=== PATIENT | female | born 1955 | race American Indian/Alaskan Native ===

== ENCOUNTER 2023-09-22 11:43 | Emergency (ER) | payer MEDICARE, SELFPAY ==
--- NOTE | ~2023-09-22 | XR_ITS ---
EXAMINATION: XR LUMBOSACRAL SPINE CLINICAL INFORMATION: Pain in the lower back/lumbosacral region. COMPARISON: None available. TECHNIQUE: AP and lateral views of the lumbar spine and lateral view of the lumbosacral junction. FINDINGS: Bones are osteopenic. There is moderate right convex scoliosis centered at the L3 level. There is grade 1 retrolisthesis of L4 on L5 by 4 mm and right lateral translation by 1 cm. No additional malalignment identified. Vertebral heights appear normal, the sensitivity for compression deformity is somewhat limited by the significant curvature and the nonorthogonal views of the vertebral bodies. Multilevel degenerative disc disease is noted in the lumbar spine, moderate in severity at T12-L1, L2-L3, and L3-L4. Multilevel facet arthropathy is suspected. Mild osteoarthritis in the SI joints. Calcific atherosclerosis in the abdominal aorta and iliac arteries. XR/XR lumbar spine 2-3V IMPRESSION: 1. Moderate right convex scoliosis with moderate multilevel degenerative disc disease and facet arthropathy in the lumbar spine. 2. Grade 1 retrolisthesis of L4 on L5. 3. No acute fractures. Osteopenia.
--- NOTE | ~2023-09-22 | CT_ITS ---
EXAMINATION: CT HEAD WITHOUT CONTRAST CT CERVICAL SPINE WITHOUT CONTRAST CLINICAL INFORMATION: Fall COMPARISON: None. TECHNIQUE: Multidetector CT imaging of the head and cervical spine was performed without the use of intravenous contrast. Multiplanar reformats are reviewed. This CT examination was performed using dose optimization techniques as appropriate, variously including the following: *Automated exposure control *Adjustment of mA and/or kV according to patient size (this includes techniques or standardized protocols for targeted exams where dose is matched to indication/reason for exam; i.e. extremities or head) *Use of iterative reconstruction technique DLP: 995 mGy-cm. FINDINGS: There is no evidence of acute intracranial hemorrhage or territorial infarction. No abnormal mass effect or midline shift is seen. Galindo to white matter differentiation is well preserved. No extra-axial fluid collections are identified. The ventricles are normal in size. There is no abnormal attenuation within the brain parenchyma. The osseous structures and soft tissues are normal. The mastoid air cells and visualized portions of the paranasal sinuses are well-aerated. No prevertebral soft tissue swelling. Straightening of normal lordosis. 3 mm anterolisthesis C4 on C5 appears related to degenerative disc and facet disease. Moderate degenerative disc disease at C4-C5, C5-C6, and C6-C7. Moderate facet disease at the same levels, right greater than left. No visible fracture. CT/CT cervical spine wo IV con IMPRESSION: No acute intracranial pathology. No cervical spine fracture. 3 mm anterolisthesis C4 on C5 likely degenerative in etiology. No prevertebral soft tissue swelling.
--- NOTE | ~2023-09-22 | CT_ITS ---
EXAMINATION: CT HEAD WITHOUT CONTRAST CT CERVICAL SPINE WITHOUT CONTRAST CLINICAL INFORMATION: Fall COMPARISON: None. TECHNIQUE: Multidetector CT imaging of the head and cervical spine was performed without the use of intravenous contrast. Multiplanar reformats are reviewed. This CT examination was performed using dose optimization techniques as appropriate, variously including the following: *Automated exposure control *Adjustment of mA and/or kV according to patient size (this includes techniques or standardized protocols for targeted exams where dose is matched to indication/reason for exam; i.e. extremities or head) *Use of iterative reconstruction technique DLP: 995 mGy-cm. FINDINGS: There is no evidence of acute intracranial hemorrhage or territorial infarction. No abnormal mass effect or midline shift is seen. Galindo to white matter differentiation is well preserved. No extra-axial fluid collections are identified. The ventricles are normal in size. There is no abnormal attenuation within the brain parenchyma. The osseous structures and soft tissues are normal. The mastoid air cells and visualized portions of the paranasal sinuses are well-aerated. No prevertebral soft tissue swelling. Straightening of normal lordosis. 3 mm anterolisthesis C4 on C5 appears related to degenerative disc and facet disease. Moderate degenerative disc disease at C4-C5, C5-C6, and C6-C7. Moderate facet disease at the same levels, right greater than left. No visible fracture. CT/CT head/brain wo IV con IMPRESSION: No acute intracranial pathology. No cervical spine fracture. 3 mm anterolisthesis C4 on C5 likely degenerative in etiology. No prevertebral soft tissue swelling.
--- NOTE | 2023-09-22 11:47 | ED_ITS ---
HPI - General Adult General Chief complaint: Fall Stated complaint: Fall 2 days ago - back/neck pain Time Seen by Provider: 09/22/23 12:26 Source: patient and flask carrier (all interactions with this patient were facilitated via an [facility]) Mode of arrival: ambulatory Limitations: language barrier (all interactions with this patient were facilitated via an [facility]) History of Present Illness ED Provider: Olivia Flowers PA-C HPI narrative: Patient is a 68 year old assigned female at with no reported medical history presenting to the emergency department today with neck and back pain. Patient states that 2 days ago she slipped and fell in the shower. Patient states that she hit her head but denies any loss of consciousness. Patient states that her neck and back hurt. Patient denies any dizziness, lightheadedness, abdominal pain, nausea, vomiting, fever, chills, blurry vision, double vision, loss of vision, chest pain, difficulty breathing, shortness of breath, night sweats, pain with urination, increased urinary frequency, increased urinary urgency, blood in her urine or stool, syncope or a near syncopal episode, bowel incontinence, bladder incontinence, bowel retention, bladder retention, or any other complaints at this time. Onset (ago): day(s) (2) Location: neck and back Severity: mild Severity scale (1-10): 4 Quality: aching and dull Pain Consistency: constant Relieving factors: none Exacerbating factors: none Associated symptoms: denies other symptoms Treatments prior to arrival: none Related Data Previous Rx's ?Medication ?Instructions ?Recorded cyclobenzaprine 5 mg tablet 5 mg PO TID PRN pain 7 days #21 09/22/23 tabs Allergies Allergy/AdvReac Type Severity Reaction Status Date / Time No Known Allergies Allergy Verified 09/22/23 15:32 Review of Systems Constitutional: Constitutional: Reports no additional constitutional complaints, Denies chills, Denies fever(s) and Denies night sweats Eyes: Eyes: Reports no additional eye complaints, Denies blurry vision, Denies change in vision, Denies diplopia, Denies eye discharge, Denies loss of vision and Denies eye pain ENT: Denies dizziness and Reports neck pain Cardiovascular: Cardiovascular: Reports no additional cardiovascular complaints, Denies chest pain, Denies lightheadedness, Denies Loss of Consciousness and Denies dyspnea Respiratory: Respiratory: Reports no additional respiratory complaints and Denies dyspnea Gastrointestinal: Gastrointestinal: Reports no additional gastrointestinal complaints, Denies abdominal pain, Denies melena, Denies hematochezia, Denies change in bowel habits and Denies change in stool character Genitourinary: Genitourinary: Denies hematuria, Denies urinary frequency, Denies dysuria, Denies urinary incontinence, Denies urinary hesitancy and Denies urinary urgency Musculoskeletal: Musculoskeletal: Reports no additional musculoskeletal complaints, Reports back pain, Reports neck pain, Denies numbness and Denies tingling Neurologic: Denies dizziness, Denies loss of vision, Denies numbness and Denies tingling Psychiatric: Psychiatric: Reports no additional psychiatric complaints Endocrine: Endocrine: Reports no additional endocrine complaints Hematologic/Lymphatic: Hematologic/Lymphatic: Reports no additional hematologic/lymphatic complaints Allergic/Immunologic: Allergic/Immunologic: Reports no additional allergic/immunologic complaints PMFSH Past Medical History Attestation statement: The following information was validated with the patient. Source: old records reviewed and nursing notes reviewed Social History Social History Advance Directives: No Physical Exam ED Vital Signs: Vital Signs - 24 hr 09/22/23 11:48 09/22/23 15:37 Temperature 98 F 98 F Pulse Rate 85 85 Respiratory Rate 18 18 Blood Pressure 161/86 H 161/86 H Pulse Oximetry 98 98 Oxygen Delivery Method Room Air Room Air BMI result Body Mass Index 22.7 Const General: cooperative, no acute distress, alert and awake Nutritional Appearance: well nourished Orientation/consciousness: patient oriented x3 Limitations: no limitations [facility] Head: Yes normal to inspection and Yes atraumatic Ears: hearing grossly normal bilaterally and external ears normal General nose exam: Normal external nose present, no nasal discharge noted and no epistaxis Face and sinus: Yes normal facial exam, No abrasion and No laceration Mouth: Normal oral and palatal mucosa present, no drooling and no muffled voice Eyes General: appearance normal, both eyes and all related structures Periorbital: periorbital findings normal Eyelids: Yes eyelids normal Conjunctivae: conjunctivae normal Pupils: Equal, round and reactive pupils present EOM: EOMs intact bilaterally Neck Neck: Yes normal visual inspection, Yes full ROM and Yes no lymphadenopathy Chest Chest palpation & inspection: normal inspection of the chest Resp Effort & Inspection: normal respiratory effort and able to speak in complete sentences GI Inspection: Yes normal to inspection General: Yes no CVA tenderness Back/Spine/Pelvis Back: no CVA tenderness Cervical Spine: normal cervical lordosis and cervical ROM normal Thoracic/Lumbar Spine: thoracic and lumbar spine normal to inspection Neuro General: patient oriented x3 and moves all extremities Cranial nerves: Yes Equal, round and reactive pupils present Cognition (Neuro): normal cognition Motor exam (neuro): 5/5 motor strength present throughout Sensory Exam: Normal double simultaneous stimulation for sensation Coordination: [id number] test normal Extrem General: Yes normal to inspection, Yes full ROM and Yes capillary refill normal Psych Appearance: grossly normal Mental Status: mental status grossly normal Affect: normal affect Attitude: cooperative Thought process: Normal thought process present Thought content: Normal thought content present Insight: Good insight present (Psych) Course Course Course Narrative: This is an RME done by SHAHNAZ Lowe: Additional HPI, ROS, PE not included below will be deferred to primary provider. This is a 68 year old female with a hx of HTN who fell in the shower 2 days ago and hit her head, neck, and lower back. She had no loss of consciousness, but the pain was so bad she was on the ground for a while, she reports. No urinary or bowel incontinence, no numbness, weakness, or tingling. She takes no blood thinners. Appearance: Alert.? Oriented X3.? No acute cardiopulmonary distress distress.? Head: Normocephalic, atraumatic, no step-offs or deformities Neck: Normal inspection.? Neck supple.? CVS: Pulses normal.? Respiratory: No respiratory distress.? Skin: ? Normal skin color. Extremities: 5/5 strength to bilateral upper and lower extremities Back: No midline tenderness, no C-spine tenderness, full range of motion, No CVA tenderness bilaterally Neuro: Oriented X 3.? No motor deficit.? No sensory deficit. Medications Administered Discontinued Medications Generic Name Dose Route Start Last Admin Trade Name Freq PRN Reason Stop Dose Admin Cyclobenzaprine HCl 5 mg 09/22/23 15:24 09/22/23 15:33 Cyclobenzaprine Hcl 5 Mg Tablet PO 09/22/23 15:25 5 mg ONCE ONE Administration Ketorolac Tromethamine 15 mg 09/22/23 15:24 09/22/23 15:32 Ketorolac Tromethamine 15 Mg/Ml Vial IM 09/22/23 15:25 15 mg ONCE ONE Administration Medical Decision Making Medical Decision Making MDM Narrative: Patient is a 68 year old assigned female at with no reported medical history presenting to the emergency department today with neck and back pain. Patient's physical exam was unremarkable. Patient's lumbar x-ray showed no acute process. Patient's head and c-spine CTs showed no acute process. I explained my physical exam findings as well as all test results to the patient. I answered all questions asked by the patient. I stressed the importance of the patient taking her medication as prescribed. I stressed the importance of the patient following up with her primary care provider. I stressed the importance of the patient returning to the emergency department immediately if her symptoms were to worsen or if she were to develop any dizziness, shortness of breath, difficulty breathing, chest pain, blurry vision, loss of vision, nausea, v omiting, abdominal pain, fever, chills, back pain, or any other complaints. Patient verbalized agreement and understanding with this treatment plan and discharge. Differential Diagnosis Differential Diagnoses: The differential diagnosis associated with the presentation includes Fall Neck pain Back pain Muscle spasm Admission/Observation Consideration of admission/observation: Escalation of care including admission/observation considered Patient would have been admitted to the hospital had her work up had any findings where hospital admission was appropriate and her clinical presentation warranted hospital admission. Independent Interpretation I performed an independent interpretation of an: Plain X-Ray and CT Scan Interpretation: My interpretation is in agreement with the radiologist's impression of these imaging studies. EXAMINATION: CT HEAD WITHOUT CONTRAST CT CERVICAL SPINE WITHOUT CONTRAST CLINICAL INFORMATION: Fall COMPARISON: None. TECHNIQUE: Multidetector CT imaging of the head and cervical spine was performed without the use of intravenous contrast. Multiplanar reformats are reviewed. This CT examination was performed using dose optimization techniques as appropriate, variously including the following: *Automated exposure control *Adjustment of mA and/or kV according to patient size (this includes techniques or standardized protocols for targeted exams where dose is matched to indication/reason for exam; i.e. extremities or head) *Use of iterative reconstruction technique DLP: 995 mGy-cm. FINDINGS: There is no evidence of acute intracranial hemorrhage or territorial infarction. No abnormal mass effect or midline shift is seen. Galindo to white matter differentiation is well preserved. No extra-axial fluid collections are identified. The ventricles are normal in size. There is no abnormal attenuation within the brain parenchyma. The osseous structures and soft tissues are normal. The mastoid air cells and visualized portions of the paranasal sinuses are well-aerated. No prevertebral soft tissue swelling. Straightening of normal lordosis. 3 mm anterolisthesis C4 on C5 appears related to degenerative disc and facet disease. Moderate degenerative disc disease at C4-C5, C5-C6, and C6-C7. Moderate facet disease at the same levels, right greater than left. No visible fracture. CT/CT head/brain wo IV con IMPRESSION: No acute intracranial pathology. No cervical spine fracture. 3 mm anterolisthesis C4 on C5 likely degenerative in etiology. No prevertebral soft tissue swelling. Dictated By: Lester King MD Signed By: Electronically signed by Lester King MD 09/22/23 7447 EXAMINATION: XR LUMBOSACRAL SPINE CLINICAL INFORMATION: Pain in the lower back/lumbosacral region. COMPARISON: None available. TECHNIQUE: AP and lateral views of the lumbar spine and lateral view of the lumbosacral junction. FINDINGS: Bones are osteopenic. There is moderate right convex scoliosis centered at the L3 level. There is grade 1 retrolisthesis of L4 on L5 by 4 mm and right lateral translation by 1 cm. No additional malalignment identified. Vertebral heights appear normal, the sensitivity for compression deformity is somewhat limited by the significant curvature and the nonorthogonal views of the vertebral bodies. Multilevel degenerative disc disease is noted in the lumbar spine, moderate in severity at T12-L1, L2-L3, and L3-L4. Multilevel facet arthropathy is suspected. Mild osteoarthritis in the SI joints. Calcific atherosclerosis in the abdominal aorta and iliac arteries. XR/XR lumbar spine 2-3V IMPRESSION: 1. Moderate right convex scoliosis with moderate multilevel degenerative disc disease and facet arthropathy in the lumbar spine. 2. Grade 1 retrolisthesis of L4 on L5. 3. No acute fractures. Osteopenia. Dictated By: Robbi Pink MD Signed By: Electronically signed by Robbi Pink MD 09/22/23 4501 Radiology Impression Discussion of test interpretation with radiology: I have reviewed the radiologist's reading. Prescription Management I considered prescription management with: Pain Medication (patient prescribed pain medication) Discharge Plan Discharge Clinical Impression: Fall, Back pain, Acute neck pain Patient Disposition: Home, Self-Care Instructions: Fall Prevention for Older Adults (ED), Back Pain (ED), Acute Neck Pain (ED) Additional Instructions: Follow up with your primary care provider. Return to the emergency department immediately if your symptoms worsen or if you develop any dizziness, shortness of breath, difficulty breathing, chest pain, blurry vision, loss of vision, nausea, vomiting, abdominal pain, fever, chills, back pain, or any other complaints. Prescriptions: New cyclobenzaprine 5 mg tablet 5 mg PO TID PRN (Reason: pain) 7 Days Qty: 21 0RF Referrals: [facility] [[facility]] (Call to establish and follow up with a primary care provider. If you already have a primary care provider, please follow up with them.) [facility] [Provider Group] [facility] [Provider Group] Interventions: ED Discharge Assessment Last Done: 09/22/23 15:37 Discharge Date/Time: 09/22/23 15:38 Print Language: Maltese
[2023-09-22 11:48] VITALS: BP 161/86; PULSE 85; RESP 18; TEMP 36.6; O2SAT 98; BMI 22.7
[2023-09-22] MEDS: Ketorolac Tromethamine 15 MG/ML VIAL IM (15:32)
[2023-09-22] MEDS: Cyclobenzaprine HCl 5 MG TABLET PO (15:33)
[2023-09-22 15:37] VITALS: BP 161/86; PULSE 85; RESP 18; TEMP 36.6; O2SAT 98
== END 2023-09-22 15:38 | disposition home or self-care (01) ==
PROVIDERS: Emergency Provider Emergency Medicine
DX: M54.2 Cervicalgia (principal); M54.50 Low back pain, unspecified; Z91.81 History of falling
CPT/HCPCS: 70450; 72100; 72125; 96372; 99283; 99284; J1885

== ENCOUNTER 2023-11-04 14:26 | Emergency (ER) | payer MEDICARE, MEDICAID, SELFPAY ==
[2023-11-04 15:00] VITALS: BP 129/76; PULSE 88; RESP 16; TEMP 36.6; O2SAT 97; BMI 21.6
--- NOTE | 2023-11-04 15:00 | ED.GENADULT ---
HPI - General Adult General Stated complaint: high bp needs medication Time Seen by Provider: 11/04/23 15:06 Source: patient, RN notes reviewed and old records reviewed Mode of arrival: ambulatory Limitations: no limitations History of Present Illness ED Provider: Chaparrita King PA-C HPI narrative: 68 yo Belarusian speaking female presents to the ER for medication refill. She has history of HTN and just moved here from [place]. She is on irbesartan 150 mg per day and needs a refill, she only has 1 pill left. Her BP has been well controlled at home with this medication. no chest pain, headaches, vision changes. she has an apppointment with a doctor here on 11/09. Associated symptoms: denies other symptoms Related Data Previous Rx's ?Medication ?Instructions ?Recorded cyclobenzaprine 5 mg tablet 5 mg PO TID PRN pain 7 days #21 09/22/23 tabs irbesartan 150 mg tablet 150 mg PO DAILY #14 tabs 11/04/23 Allergies Allergy/AdvReac Type Severity Reaction Status Date / Time No Known Allergies Allergy Verified 11/04/23 15:01 Review of Systems Review of Systems: Yes all other systems are reviewed and are negative Physical Exam ED Const General: cooperative, healthy appearing, comfortable and no acute distress Nutritional Appearance: average body habitus Limitations: no limitations HENMT Head: Yes normal to inspection, Yes normocephalic and Yes atraumatic Ears: hearing grossly normal bilaterally General nose exam: Normal external nose present Face and sinus: Yes normal facial exam Eyes General: appearance normal, both eyes and all related structures Neck Neck: Yes normal visual inspection Resp Effort & Inspection: normal respiratory effort and able to speak in complete sentences Cardio Rate: regular rate Rhythm: regular rhythm Heart sounds: S1 normal heart sound present and S2 normal heart sound present GI Inspection: Yes normal to inspection Skin General skin exam: no rashes or lesions noted Neuro General: gait normal Cognition (Neuro): normal cognition Extrem General: Yes normal to inspection Psych Appearance: grossly normal and well kempt Mental Status: mental status grossly normal Speech and movement: Normal speech and movement present Medical Decision Making Medical Decision Making MDM Narrative: 68 yo female presenting for med refill - she is on irbesartan 150 mg with good BP control. she is asymptomatic at this time and feels well. she has an appointment with a provider here next week. 2 weeks of irbesartan sent to her pharmacy. patient counseled using catering staff member. stable for d/c home Differential Diagnosis Differential Diagnoses: The differential diagnosis associated with the presentation includes primary HTN, secondary HTN, medication noncompliance Tests considered The following testing was considered but not selected: basic labs and EKG considered - not emergently required today Prescription Management I considered prescription management with: Other (antihypertensives) Chronic Conditions Patient?s care impacted by: Hypertension Social Determinants Patient?s care significantly limited by Social Determinants of Health including: Other Social Determinant of Health (recently moved to ) Critical Care Time Critical Care Time Critical Care Time: No Discharge Plan Discharge Clinical Impression: Hypertension Qualifiers: Hypertension type: primary hypertension Qualified Code(s): I10 - Essential (primary) hypertension Patient Disposition: Home, Self-Care Instructions: Hypertension (ED) Additional Instructions: take the prescribed medication as directed follow up with your PCP next week as directed Prescriptions: New irbesartan 150 mg tablet 150 mg PO DAILY Qty: 14 0RF No Action cyclobenzaprine 5 mg tablet 5 mg PO TID PRN (Reason: pain) 7 Days Qty: 21 0RF Print Language: Belarusian
[2023-11-04 15:33] VITALS: BP 129/76; PULSE 88; RESP 16; TEMP 36.6; O2SAT 97
== END 2023-11-04 15:15 | disposition home or self-care (01) ==
LOC: HO.ED 15:18
PROVIDERS: Emergency Provider Emergency Medicine; PCP Internal Medicine
DX: I10 Essential (primary) hypertension (principal); Z76.0 Encounter for issue of repeat prescription
CPT/HCPCS: 99282; 99283

== ENCOUNTER 2023-12-28 09:19 | Outpatient (REF) | payer OTHER, MEDICAID, SELFPAY ==
[2023-12-28 11:08] LABS: MANUAL DIFF FLAG NO
[2023-12-28 11:25] LABS: Basophils Percent Auto 0.7 % (0-2); Eosinophils Absolute Auto 0.2 X10*3/uL (0.0-0.4); Eosinophils Percent Auto 4.1 % (0-4); Hematocrit 36.4 % (37.0-47.0); Hemoglobin 11.9 g/dl (12.0-16.0); Imm Gran Abs Auto 0.02 X10*3/uL (0.00-0.03); Imm Gran Pct Auto 0.3 % (0.0-0.4); Lymphocytes Absolute Auto 1.9 X10*3/uL (1.2-4.9); Lymphocytes Percent Auto 32.7 % (20-40); Mean Corpuscular HGB Conc 32.7 g/dl (31.0-35.0); Mean Corpuscular Hemoglobin 28.1 pg (27.0-33.0); Mean Corpuscular Volume 86.1 fL (80.0-98.0); Mean Platelet Volume 11.3 fL (9.4-12.3); Monocytes Absolute Auto 0.5 X10*3/uL (0.1-1.2); Monocytes Percent Auto 7.8 % (2-11); Neutrophils Absolute Auto 3.2 x10*3/uL (2.0-8.3); Neutrophils Percent Auto 54.4 % (45-73); Platelet Count 243 X10*3/uL (160-400); Red Blood Count 4.23 X10*6/uL (4.20-5.50); Red Cell Distribution Width 14.1 % (11.0-16.0); White Blood Count 5.9 X10*3/uL (4.8-10.8)
[2023-12-28 11:36] LABS: Alanine Aminotransferase 17 U/L (0-31); Albumin Level 4.2 g/dL (3.5-5.0); Alkaline Phosphatase 92 U/L (39-117); Anion Gap 12 (12-20); Aspartate Amino Transferase 16 U/L (5-31); Bilirubin Total 0.3 mg/dL (0.0-1.0); Blood Urea Nitrogen 18 mg/dL (9-16); Calcium 9.7 mg/dL (8.4-10.2); Carbon Dioxide 27 mmol/L (22-29); Chloride 107 mmol/L (96-108); Cholesterol 278 mg/dL (<200); Estimated Glomerular Filt Rate > 60; Glucose Random 87 mg/dL (60-115); HDL Cholesterol 59 mg/dL (>40); LDL Cholesterol Calculated 163 mg/dL (<100); Potassium 4.5 mmol/L (3.3-5.1); Sodium 141 mmol/L (135-145); Total Protein 7.3 g/dL (6.5-8.0); Triglycerides 281 mg/dL (<150)
[2023-12-28 11:55] LABS: Thyroid Stimulating Hormone 2.56 uIU/mL (0.32-4.0)
== END 2023-12-28 09:20 | disposition home or self-care (01) ==
LOC: HO.10HDL 09:19
PROVIDERS: Visit Provider Internal Medicine
DX: E78.00 Pure hypercholesterolemia, unspecified (principal); F32.2 Major depressive disorder, single episode, severe without psychotic features; I10 Essential (primary) hypertension; M41.9 Scoliosis, unspecified; M54.50 Low back pain, unspecified
CPT/HCPCS: 36415; 80053; 80061; 84443; 85025

== ENCOUNTER 2024-02-04 11:00 | Outpatient (RCR) | payer OTHER, SELFPAY ==
--- NOTE | 2024-02-09 11:32 | MHC.PT.DC ---
[facility] [place] Office [place] Office [place] Office [address] August Cazares [address] [phone] F: [phone] F: [phone] F: [phone] F: [phone] Physical Therapy Discharge Report Diagnosis: Back pain scoliosis Date of Surgery: NA Date of Evaluation: 01/05/24 Date of Discharge: 02/09/24 Treatments to Date: 7 Cancellations to Date: 3 No Shows to Date: 0 Discharge Status: Improved Function Independent with HEP Discharge Summary: Mary has completed 7 PT visits. She has made improvements and is independent with all HEP. She is therefore being d/c from PT. Electronically signed by: Carol Ann Holman PT DPT Please sign and return to therapist. Thank you for your referral.
== END 2024-02-09 11:32 | disposition home or self-care (01) ==
LOC: HO.PT 11:00
PROVIDERS: PCP Internal Medicine; Visit Provider Internal Medicine
DX: M41.9 Scoliosis, unspecified (principal); M54.50 Low back pain, unspecified
CPT/HCPCS: 97110; 97161

== ENCOUNTER 2024-02-09 11:04 | Outpatient (AMB) | payer OTHER, SELFPAY ==
--- NOTE | 2024-02-09 11:10 | A.OFFVIS_ITS ---
Intake Visit Reasons: SHIPYARD HELPER Right hand trigger finger Intake Note: Mary is a 68 year old right hand dominant female who presents today as new patient with complaints of her right hand thumb trigger. Pt states she has problems with both thumbs. Pt states she wears braces on both hands all the time except when she is sleeping. Pt denies any previous surgeries or injections in both hands. Microsoft Windows Engineer Required: Yes Microsoft Windows Engineer Language: Washing Machine Loader Services: Microsoft Windows Engineer Present Microsoft Windows Engineer Name: Stephanie ([id number]) Accompanied by: niece Allergies No Known Allergies Allergy (Verified 02/09/24 11:10) HPI HPI SHIPYARD HELPER Right hand trigger finger: Details: Patient is a 68-year-old female who presents for evaluation of bilateral trigger thumbs, as well as bilateral wrist pain and stiffness. Patient states that this locking and catching has been ongoing for approximately 3 months. Patient reports that this causes her significant pain over and near the A1 davidson of the bilateral thumbs, and she feels that this pain and locking and catching significantly inhibit her ability to function adequately. Of note, the patient also reports that she has been wearing bilateral wrist splints for some time, and she feels this has worsened the pain and decreased range of motion in her bilateral wrists. Patient denies any numbness or tingling in the hands. No other acute complaints or concerns at this time. Review of Systems Const All systems reviewed & are unremarkable except as noted in HPI and below Physical Exam Extrem Other: Patient is alert, oriented, and in no acute distress. Neuro: Normal sensation of the tips of all digits of the bilateral hands at this time Vascular: Cap refill brisk Pain: Patient reports tenderness to palpation of the A1 davidson of bilateral thumbs Patient reports diffuse fbyf-uq-nrehwyed tenderness to palpation about bilateral wrists, worst in the volar aspect ROM: Extension of bilateral wrists limited to approximately 30 degrees past neutral Bilateral wrist flexion full and intact Patient is able to make a closed fist and extend all digits of bilateral hands fully There is however visible and palpable locking and catching of bilateral thumbs Skin: No lacerations or abrasions. General: No ecchymosis, erythema, or evidence of infection. Psych: Appears grossly normal Affect normal Attitude cooperative Office Procedures Tendon Injection Tendon Injection Details: Right trigger thumb injection [id number] Tendon Sheath Injection All charges added?: Procedure code (CPT) selection complete Assessment & Plan Assessment & Plan (1) Bilateral stiffness of wrist joints: Code(s): M25.631 - Stiffness of right wrist, not elsewhere classified; M25.632 - Stiffness of left wrist, not elsewhere classified Category: Medical Plan 1. Trigger thumb, right Ongoing for 3 months Patient would like to proceed with steroid injection at this time The risks and benefits of a steroid injection including but not limited to risk of damage to blood vessels, nerves, tendons, infection, skin bleaching, failure to improve symptoms, increased pain, and possible need for further injections or other intervention were discussed with the patient and the patient wishes to proceed with the steroid injection. Once consent was obtained, I sterilely prepped the area over the A1 davidson of the flexor tendon sheath of the right thumb. I then injected the flexor tendon sheath with a combination of 1 mL of dexamethasone (4mg/ml), and 1% lidocaine. The patient tolerated the procedure well with no complications. If the patient continues to have locking and catching 4-6 weeks following this injection, they may call to schedule appointment to discuss alternative treatment options 2. Trigger thumb, left Ongoing for 3 months Patient states that she finds the right side more bothersome, would like to proceed with injection of the site at this time If the injection proves effective, patient can call to make a follow-up appointment for injection into the left However, if injections are not effective, we can discuss surgery on both thumbs at follow-up visit Patient is amenable to this plan 3. Bilateral wrist stiffness Patient was referred to occupational hand therapy for range of motion and strengthening of bilateral wrists Patient was also encouraged to discontinue use of the Velcro wrist splints, as they are likely worsening her stiffness and not providing her any benefit Patient understands this and is amenable to this plan Patient will follow-up as needed with any acute concerns Orders: Orders OT Evaluation and Treatment Today M25.631 - Stiffness of right wrist, not elsewhere classified, M25.632 - Stiffness of left wrist, not elsewhere cl assified Coding Level of Care Code New Pt Level 3 (44722) Diagnoses Bilateral stiffness of wrist joints M25.631; M25.632 CPT Codes Tendon Injection - Tendon Injection 1: [id number]-[id number] Tendon Sheath Injection ([id number])
== END 2024-02-09 12:03 | disposition home or self-care (01) ==
PROVIDERS: PCP Internal Medicine
DX: M25.631 Stiffness of right wrist, not elsewhere classified (principal); M25.632 Stiffness of left wrist, not elsewhere classified
CPT/HCPCS: 20550; 99203

== ENCOUNTER → 2024-02-09 11:04 | Outpatient (BNVA) | payer OTHER, SELFPAY | PROVIDERS: PCP Internal Medicine | DX: M25.631 Stiffness of right wrist, not elsewhere classified (principal); M25.632 Stiffness of left wrist, not elsewhere classified | CPT/HCPCS: 20550; 99202; J1100; J2003 ==

== ENCOUNTER 2024-03-08 16:54 | Outpatient (REF) | payer OTHER, SELFPAY | END 2024-03-08 16:55 | disposition home or self-care (01) | LOC: HO.XRAY 16:54 | PROVIDERS: PCP Internal Medicine; Visit Provider Internal Medicine | DX: M54.50 Low back pain, unspecified (principal) | CPT/HCPCS: 72100 ==

== ENCOUNTER 2024-03-09 13:58 | Outpatient (AMB) | payer OTHER, SELFPAY ==
[2024-03-09 14:13] VITALS: BP 128/78; PULSE 77; BMI 22.6
--- NOTE | 2024-03-09 14:13 | A.OFFVIS_ITS ---
Vital Signs 03/09/24 14:13 Height 5 ft 3 in Weight 127 lb 13.89 oz BMI 22.6 BP 128/78 Blood Pressure Location Lt brachial Position Sitting Pulse 77 Intake Visit Reasons: Colonoscopy Screening Intake Note: Mary presents as a new patient for colonoscopy screening. CC: Patient reports constipation ever since she began taking a medication for cholesterol. Planer Operator Required: Yes Planer Operator Name: [id number] Louise Accompanied by: Self / Same As Patient Allergies No Known Allergies Allergy (Verified 03/09/24 14:18) HPI HPI Colonoscopy Screening: Details: 68-year-old female here for preprocedural meeting to discuss a screening colonoscopy. She is referred by Chloe Lopez. PMX Hypertension High cholesterol Hypothyroid Scoliosis Depression Bilateral carpal tunnel syndrome * SURGICAL HISTORY Pt denies * ALLERGIES Atorvastatin Sertraline - lips numb * [employer] LABS: Laboratory Tests 12/28/23 09:25 WBC 5.9 Hgb 11.9 L Hct 36.4 L MCV 86.1 MCH 28.1 Plt Count 243 Estimated GFR > 60 Total Bilirubin 0.3 AST 16 ALT 17 Alkaline Phosphatase 92 TSH 2.56 TODAY'S VISIT Lithuanian #[id number], then Seamus Live This is her first colonoscopy. SHe suffers occasional CIC no upper stomach problems She is naive to anesthesia and sedation. She denies any cardiac or respiratory problems. No ID problems There is no known FHX of CRC or polyps. [facility] Surgical History (Updated 03/09/24 @ 14:25 by BRADLEY Balbuena) No pertinent past surgical history Social History (Updated 03/09/24 @ 14:26 by BRADLEY Balbuena) Alcohol intake: current Alcohol intake frequency: holidays/special occasions only Patient Tobacco Use Status: Never used Tobacco Use of substances other than those prescribed or required for medical reasons: No Review of Systems Const Denies fatigue, Denies fever(s), Denies night sweats, Denies poor appetite and Denies weight loss Eyes Details: glasses Reports requires corrective lenses ENT Reports Normal hearing present, Denies dental pain, Denies dysphagia, Denies hearing loss, Denies mouth pain, Denies odynophagia, Denies throat swelling, Denies tongue swelling and Reports other (Dentition adequate) Card Reports no additional complaints Resp Reports no additional complaints GI Details: Denies abdominal pain, Denies melena, Denies bloating, Denies hematochezia, Reports constipation, Denies GI cramping, Denies dysphagia, Denies excessive flatus, Denies early satiety, Denies heartburn, Denies diarrhea, Denies nausea, Denies odynophagia, Denies vomiting and Denies hematemesis Skin/Breast Denies pruritus, Denies lesions, Denies rash and Denies jaundice Neuro Reports Normal hearing present and Denies Abnormal speech present Endo Denies fatigue Aller/Immun Denies throat swelling and Denies tongue swelling Physical Exam Vital Signs: Last Vital Signs Pulse 77 03/09/24 14:13 BP 128/78 03/09/24 14:13 BMI result Body Mass Index 22.6 Const General: cooperative, no acute distress, well developed and well groomed Nutritional Appearance: average body habitus and well nourished Orientation/consciousness: oriented to person, oriented to place and oriented to time Limitations: language barrier HEENT Head: Yes normocephalic and Yes atraumatic Eyes General: appearance normal, both eyes and all related structures Pupils: Equal, round and reactive pupils present Neck Neck: Yes normal visual inspection and Yes no lymphadenopathy Thyroid: Thyroid normal Resp Effort & Inspection: normal respiratory effort and able to speak in complete sentences Auscultation: clear to auscultation bilaterally Cardio Rate: regular rate Rhythm: regular rhythm Heart sounds: Normal, physiologic split S2 sound present Peripheral pulses: radial pulses present and posterior tibial pulses present GI Inspection: No distended and No Abdominal panniculus present Palpation (GI): Soft to palpation, nontender, no guarding, not rigid and No hepatosplenomegaly present Percussion: Yes normal to percussion Auscultation: normal bowel sounds Rectal Exam - Female: deferred Skin General skin exam: no rashes or lesions noted, turgor normal, skin not dry, no jaundice, No spider nevi and no striae Rashes: no rashes Nails: normal Neuro General: oriented to person, oriented to place and oriented to time Cranial nerves: Yes Equal, round and reactive pupils present and Yes Normal hearing present Speech: No Abnormal speech present Extrem General: Yes normal to inspection, No clubbing, No cyanosis and No edema Psych Appearance: grossly normal and well kempt Mental Status: mental status grossly normal Speech and movement: Normal speech and movement present Affect: normal affect Attitude: cooperative Thought process: Normal thought process present and not confabulating Thought content: Normal thought content present Insight: Limited insight present (Psych) Judgement: Limited judgement present (Psych) Assessment & Plan Assessment & Plan (1) Pre-op examination: Code(s): Z01.818 - Encounter for other preprocedural examination Category: Medical Plan Lithuanian #[id number], then Seamus Live She is here today with a younger female family member who is supportive This is her first colonoscopy. She suffers occasional CIC no upper stomach problems She is naive to anesthesia and sedation. She denies any cardiac or respiratory problems. No ID problems There is no known FHX of CRC or polyps. Orders: Orders Colonoscopy - GI Use Only Today Z01.818 - Encounter for other preprocedural examination Medications: New polyethylene glycol 3350 (Miralax) 238 grams PO ONCE 238 grams 0RF colonoscopy prep 1 day bisacodyl (Dulcolax (bisacodyl)) 10 mg (2 x 5 mg) PO BEDTIME 4 tabs 0RF 2 days Coding Level of Care Code New Pt Level 3 (09244) Diagnoses Pre-op examination Z01.818
== END 2024-03-09 15:12 | disposition home or self-care (01) ==
PROVIDERS: PCP Internal Medicine; Visit Provider Nurse Practitioner
DX: K59.04 Chronic idiopathic constipation (principal); Z01.818 Encounter for other preprocedural examination; Z12.11 Encounter for screening for malignant neoplasm of colon
CPT/HCPCS: 99203

== ENCOUNTER → 2024-03-09 13:58 | Outpatient (BNVA) | payer MEDICARE, SELFPAY | PROVIDERS: PCP Internal Medicine; Visit Provider Nurse Practitioner | DX: Z01.818 Encounter for other preprocedural examination (principal); K59.04 Chronic idiopathic constipation | CPT/HCPCS: 99202 ==

== ENCOUNTER 2024-03-15 11:08 | Outpatient (RCR) | payer OTHER, SELFPAY ==
--- NOTE | 2024-02-18 10:10 | MHC.OT.EP ---
[address] [phone] Occupational Therapy Plan of Care Patient Name: Mary Deshpande Date of Evaluation: 02/18/24 Diagnosis: B/L hand pain Pain Location: Constant pain in B/L wrist, tender in base of B/L thumbs, worse in thumb Pain Score: 8 Pain Scale Used: Numeric (0 - 10) Aggravating Factors: Movements, force Alleviating Factors: Trialed Tylenol w/ arthritis (with no relief) Assessment: 68 yo female presents w/ B/L hand and wrist pain, she had been wearing wrist orthoses but having more stiffness in wrist and hands. She has seen Gildardo Cheatham at [facility] and recommended discontinue orthosis to allow for more movement. She also reported B/L thumb triggers and has had cortisone injection to right thumb and is considering left and will follow up next month. On assessment today she has evident signs of arthritic changes through both hands and has pain radiating through wrist. She has tenderness at base of thumbs w/ (+) grind test, as well of tenderness over left A1 davidson, but no locking or clicking noted w/ movements. She reports relief after right thumb injection and will likely go for left next month. Wrist AROM is WFL, tighter with left extension, but more functional limitations come from digits (somewhat due to long nails and inability to do full tendon glides/joint ROM) but also limited in all planes of thumbs movement. We will continue OT to address range, strength and overall functional use of both hands w/ daily activities. Frequency and Duration: The patient will be seen 2x/wk for 4 weeks Short Term Goals: Ind w/ orthosis wear for CMC arthritis Ind (or guided with family) HEP Ind w/ use of heat modalities for comfort Shelter Goals: Good follow through w/ joint protection techniques w/ daily activities Pt to demo ease w/ light functional pinch/grasp FDT test <50 sec B/L'ly Treatment Plan: Therapeutic Exercise Therapeutic Activity Home Exercise Program Splinting Patient Education ADL Training Paraffin Fluidotherapy MHP Joint Mobilization Soft Tissue Mobilization Kinesiotaping B/L CMC orthoses Electronically Signed By: Heather Rose, OTR/L CHT Please Sign and return to therapist. Thank you once again for your referral.
--- NOTE | 2024-03-15 11:44 | MHC.OT.DC ---
[address] [phone] F: [phone] Occupational Therapy Discharge Note Patient Name: Mary Deshpande Provider: Gildardo Cheatham PA-C Diagnosis: B/L hand pain Date of Evaluation: 02/18/24 Date of Discharge: 03/15/24 Treatments to Date: 5 Discharge Status: Independent with HEP Recommend MD Follow-up Discharge Summary: Mary was referred to OT w/ B/L hand pain, related to OA and trigger thumbs. She has had significant improvements in right hand s/p cortisone injection, but still has high pain in left thumb, awaiting injection to this site. Good follow through w/ HEP, no issues w/ right but very guarded on left. Some discomfort due to rigidity of custom thermoplast orthoses, have discussed alternative w/ Comfort Cool neoprene. We will hold further OT at this time until she has had injection to left, at that time she may chose to return for cont'd strengthening, but we have been very limited at this time. Electronically Signed By: Heather Rose, OTR/L CHT Reviewed/agree with student documentation: Yes Therapist: Daisy Jj OTR/L Please Sign and return to therapist, thank you for your referral.
== END 2024-03-15 11:45 | disposition home or self-care (01) ==
LOC: HO.OT 11:08
PROVIDERS: PCP Internal Medicine
DX: M25.631 Stiffness of right wrist, not elsewhere classified (principal); M25.632 Stiffness of left wrist, not elsewhere classified
CPT/HCPCS: 29130; 97035; 97110; 97140; 97165; 97760

== ENCOUNTER 2024-04-14 10:11 | Outpatient (REF) | payer OTHER, SELFPAY | END 2024-04-14 10:12 | disposition home or self-care (01) | LOC: HO.HOSX 10:11 | PROVIDERS: PCP Internal Medicine | DX: M25.531 Pain in right wrist (principal); M25.532 Pain in left wrist; M65.311 Trigger thumb, right thumb; M65.312 Trigger thumb, left thumb; R20.0 Anesthesia of skin; R20.2 Paresthesia of skin | CPT/HCPCS: 20550; 73110; 99212; J1100; J2003 ==

== ENCOUNTER 2024-04-14 10:11 | Outpatient (AMB) | payer OTHER, SELFPAY ==
[2024-04-14 10:13] VITALS: BMI 22.5
--- NOTE | 2024-04-14 10:13 | A.OFFVIS_ITS ---
Vital Signs 04/14/24 10:13 Height 5 ft 3 in Weight 127 lb BMI 22.5 Intake Visit Reasons: OV-Right hand trigger finger-discuss other options Intake Note: Mary is a 68 year old right hand dominant female who presents today with her daughter for a follow up visit of her right trigger thumb. Right Trigger thumb injected on 02/09/24, the patient reports that this injection was very helpful and has improved her ROM of the thumb. Today she complains of pain and locking of the left thumb - she would like to have an injection done for this. She also continues to complain of bilateral wrist pain as well as numbness and tingling of fingertips of bilateral hands that is worse in the left. No history of NCS/EMG Circuitry Negative Inspector Required: Yes Circuitry Negative Inspector Services: Circuitry Negative Inspector Present Circuitry Negative Inspector Name: Herminio STEWARTJOHN Allergies No Known Allergies Allergy (Verified 04/14/24 10:20) HPI HPI OV-Right hand trigger finger-discuss other options: Details: Mary is a 68 year old right hand dominant female who presents today with her daughter for a follow up visit of her right trigger thumb. Right Trigger thumb injected on 02/09/24, the patient reports that this injection was very helpful and has improved her ROM of the thumb. Today she complains of pain and locking of the left thumb - she would like to have an injection done for this. She also continues to complain of bilateral wrist pain as well as numbness and tingling of fingertips of bilateral hands that is worse in the left. No history of NCS/EMG [facility] Surgical History No pertinent past surgical history Social History Alcohol intake: current Alcohol intake frequency: holidays/special occasions only Patient Tobacco Use Status: Never used Tobacco Review of Systems Const All systems reviewed & are unremarkable except as noted in HPI and below Physical Exam Vital Signs: BMI result Body Mass Index 22.5 Extrem Other: Patient is alert, oriented, and in no acute distress. Neuro: Normal sensation of the tips of all digits of the bilateral hands at this time Vascular: Cap refill brisk Pain: Patient reports tenderness to palpation of the A1 davidson of left thumb Patient reports diffuse eoct-pt-uamuejry tenderness to palpation about bilateral wrists, worst in the volar aspect ROM: Extension of bilateral wrists limited to approximately 30 degrees past neutral Bilateral wrist flexion full and intact Patient is able to make a closed fist and extend all digits of bilateral hands fully There is however visible and palpable locking and catching of left thumb No locking or catching of right thumb noted in the office today Skin: No lacerations or abrasions. General: No ecchymosis, erythema, or evidence of infection. Psych: Appears grossly normal Affect normal Attitude cooperative Office Procedures Joint Inj/Aspir; Non-Pain Clin Joint Injection/Drain Prep: site was prepped using aseptic technique and injection warnings given Procedure: The patient tolerated the procedure well Trigger Finger Trigger Finger Thumb Joint Injection: Left Thumb Coding Procedure code (CPT) selection complete Results Reviewed Results Reviewed: X-rays obtained in the office today and independently reviewed by me, Gildardo Cheatham PA-C, demonstrate no fracture or acute bony abnormality of bilateral hands. There are noted to be mild to moderate degenerative changes of the intercarpal joints of bilateral hands Assessment & Plan Assessment & Plan (1) Numbness and tingling in both hands: Code(s): R20.0 - Anesthesia of skin; R20.2 - Paresthesia of skin Category: Medical (2) Bilateral trigger thumb: Code(s): M65.311 - Trigger thumb, right thumb; M65.312 - Trigger thumb, left thumb Category: Medical Plan 1. Numbness and tingling of bilateral hands Symptoms intermittent, daily, worse at night Patient was referred for EMG and nerve conduction study for assessment of the health nerves of bilateral upper extremities Patient will follow-up after the studies for results review and discussion of further treatment options if indicated Patient was amenable to this plan 2. Trigger thumb, left Patient is educated about this condition Patient is educated about the treatment options available Patient would like to proceed with steroid injection Injection 1: The risks and benefits of a steroid injection including but not limited to risk of damage to blood vessels, nerves, tendons, infection, skin bleaching, failure to improve symptoms, increased pain, and possible need for further injections or other intervention were discussed with the patient and the patient wishes to proceed with the steroid injection. Once consent was obtained, I sterilely prepped the area over the A1 davidson of the flexor tendon sheath of the left thumb. I then injected the flexor tendon sheath with a combination of 1 mL of dexamethasone (4mg/ml), and 1% lidocaine. The patient tolerated the procedure well with no complications. If the patient continues to have locking and catching 4-6 weeks following this injection, they may call to schedule appointment to discuss alternative treatment options 3. Trigger thumb, right Status post injection Patient reports that her pain, locking, and catching of the right thumb have completely resolved since injection Patient was advised that if the locking, catching, and pain return, she can call our office again for reassessment and discussion of further treatment options Orders: Orders XR wrist RT min 3V Today M25.531 - Pain in right wrist XR wrist LT min 3V Today M25.532 - Pain in left wrist Coding Level of Care Code Est Pt Level 3 (58159) Diagnoses Numbness and tingling in both hands R20.0; R20.2 Bilateral trigger thumb M65.311; M65.312 CPT Codes Trigger Finger ([id number])
== END 2024-04-14 11:07 | disposition home or self-care (01) ==
PROVIDERS: PCP Internal Medicine
DX: M65.312 Trigger thumb, left thumb (principal); M65.311 Trigger thumb, right thumb; R20.0 Anesthesia of skin; R20.2 Paresthesia of skin
CPT/HCPCS: 20550; 99213

== ENCOUNTER 2024-05-18 13:24 | Outpatient (AMB) | payer OTHER, SELFPAY ==
--- NOTE | 2024-05-18 13:28 | A.OFFVIS_ITS ---
Vital Signs 05/18/24 13:33 Height 5 ft 3 in Weight 131 lb BMI 23.2 BP 131/73 Blood Pressure Location Lt brachial Position Sitting Pulse 97 Pulse Source Pulse Oximeter Pulse Oximetry (%) 97 Oxygen Delivery Method Room Air Intake Visit Reasons: Back pain Tube And Manifold Builder Required: Yes Allergies No Known Allergies Allergy (Verified 04/14/24 10:20) HPI Comments Details: Mary is very pleasant 68 years old English-speaking female who presents in my office with complains on pain in the lower back and mid back without much of the radiation to bilateral lower extremities. She reports pain aggravation with prolonged sitting, she reports pain aggravation with prolonged standing, she reports increased pain with activities. She reports that pain started years ago she does not have any inciting event which would explain her pain. She is suffering as a child from scoliosis. She reports that she can not sleep normally because of her pain can not do activities of daily living she can not take care of herself she can not function normally. She is on permanent disability and retired. She needs walker for ambulation. In terms of tissue damage he describes her pain as dull, sore, hurting, aching, heavy sensation. She take some OTC medications to control her pain. They are not very helpful. She recently relocated here from [place]. She had CT scan performed in [place] which is not available for me today. She recently completed 2 months ago physical therapy and she reported minimal help from physical therapy which disappear soon after the sessions. She reported in the past chiropractic manipulations which were not helpful for her. She never received any injections. Her past medical history significant for arthritis. She never had any surgeries. She denies smoking cigarettes denies drinking alcohol she drinks 2 cups of coffee a day and she denies recreational drugs. [facility] Surgical History No pertinent past surgical history Social History Alcohol intake: current Alcohol intake frequency: holidays/special occasions only Patient Tobacco Use Status: Never used Tobacco Review of Systems Const All systems reviewed & are unremarkable except as noted in HPI and below ENT Reports Normal hearing present Neuro Reports Normal hearing present, Denies Abnormal speech present, Denies confusion and Denies Sensory deficit (Neuro) Psych Denies confusion Physical Exam Vital Signs: Last Vital Signs Pulse 97 05/18/24 13:33 BP 131/73 05/18/24 13:33 Pulse Ox 97 05/18/24 13:33 Oxygen Delivery Method Room Air 05/18/24 13:33 BMI result Body Mass Index 23.2 Const General: no acute distress; No confusion Nutritional Appearance: average body habitus Orientation/consciousness: patient oriented x3 and No confusion Limitations: ambulation with walker Eyes General: appearance normal, both eyes and all related structures Pupils: Equal, round and reactive pupils present EOM: EOMs intact bilaterally Neck Neck: Yes full ROM Chest Chest palpation & inspection: normal inspection of the chest Resp Effort & Inspection: normal respiratory effort, able to speak in complete sentences, normal respiratory pattern, no audible wheezes and no cough Cardio Jugular venous distension: no JVD GI Inspection: Yes normal to inspection Back/Spine/Pelvis Other: Able to stand on bilateral tiptoes and bilateral heels without difficulty. Able to flex herself forward only to about 30 degrees. Able to arch herself backwards about 10-15 degrees. Both maneuvers aggravate her pain. Denies Valsalva maneuver aggravate her pain. SLR is negative bilaterally. Lassegue test is negative bilaterally. Duane test positive bilaterally. Pelvic compression test positive bilaterally. Pelvic distraction test is positive bilaterally. Loading test is positive bilaterally. Neuro General: patient oriented x3, gait normal and No confusion Cranial nerves: Yes CN's II-XII intact bilaterally, Yes Equal, round and reactive pupils present, Yes Normal hearing present and Yes Ability to bilaterally elevate shoulders present Speech: No Abnormal speech present Gait exam (Neuro): Normal gait present Motor exam (neuro): 5/5 motor strength present throughout Sensory Exam: No Sensory deficit (Neuro) Extrem General: No pedal edema Psych Speech and movement: Normal speech and movement present Affect: normal affect Attitude: cooperative Thought process: Normal thought process present Thought content: Normal thought content present Insight: Good insight present (Psych) Judgement: Good judgement present (Psych) Assessment & Plan Assessment & Plan (1) Vertebrogenic low back pain: Code(s): M54.51 - Vertebrogenic low back pain Category: Medical (2) Scoliosis of lumbar spine: Code(s): M41.9 - Scoliosis, unspecified Category: Medical (3) Spondylosis of lumbar region without myelopathy or radiculopathy: Code(s): M47.816 - Spondylosis without myelopathy or radiculopathy, lumbar region Category: Medical (4) Sacroiliitis: Code(s): M46.1 - Sacroiliitis, not elsewhere classified Category: Medical (5) Sacroiliac joint dysfunction of both sides: Code(s): M53.3 - Sacrococcygeal disorders, not elsewhere classified Category: Medical (6) Chronic pain syndrome: Code(s): G89.4 - Chronic pain syndrome Category: Medical Plan The patient reported pain in prolonged sitting and with activities. She reports she is not able to tolerate long rides. 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 She has significant scoliosis and most likely she also has spondylosis of the lumbar spine. On physical exam signs of sacroiliitis bilateral also prominent. 1. I will schedule patient for diagnostic bilateral sacroiliac joint injection. 2. I will send this patient for the MRI to confirm or rule out vertebra genic pain syndrome. 3. Sacroiliac joint injections could be given to the patient's in the future therapeutic if her diagnostic injection will appear to be her pain generators at least to a certain extent. 4. Intercept procedure could be offered to the patient if MRI will demonstrate Modic type 1 and 2 changes in the lumbar spine. Next appointment will be scheduled to evaluate this patient after diagnostic sacroiliac joint injection. Orders: Orders MR lumbar spine wo con Today M47.816 - Spondylosis without myelopathy or radiculopathy, lumbar region, M54.51 - Vertebrogenic low back pain Patient Instructions: I here by testify that I spent 45 minutes in conversation with this patient as well as planning her care and organizing this note. One of the office MILLER Mcmahan who is certified supervisor nutritional yeast helped us to maintain this conversation in English. Coding Level of Care Code New Pt Level 3 (06181) Diagnoses Vertebrogenic low back pain M54.51 Scoliosis of lumbar spine M41.9 Spondylosis of lumbar region without myelopathy or radiculopathy M47.816 Sacroiliitis M46.1 Sacroiliac joint dysfunction of both sides M53.3 Chronic pain syndrome G89.4
[2024-05-18 13:33] VITALS: BP 131/73; PULSE 97; O2SAT 97; BMI 23.2
== END 2024-05-18 13:52 | disposition home or self-care (01) ==
PROVIDERS: PCP Internal Medicine; Referring Provider Internal Medicine; Visit Provider Anesthesiology
DX: M54.51 Vertebrogenic low back pain (principal); M41.9 Scoliosis, unspecified; M47.816 Spondylosis without myelopathy or radiculopathy, lumbar region; M46.1 Sacroiliitis, not elsewhere classified; M53.3 Sacrococcygeal disorders, not elsewhere classified; G89.4 Chronic pain syndrome
CPT/HCPCS: 99203

== ENCOUNTER → 2024-05-18 13:24 | Outpatient (BNVA) | payer OTHER, SELFPAY | PROVIDERS: PCP Internal Medicine; Referring Provider Internal Medicine; Visit Provider Anesthesiology | DX: M54.51 Vertebrogenic low back pain (principal); M41.9 Scoliosis, unspecified; M46.1 Sacroiliitis, not elsewhere classified; M47.816 Spondylosis without myelopathy or radiculopathy, lumbar region; M53.3 Sacrococcygeal disorders, not elsewhere classified; G89.4 Chronic pain syndrome | CPT/HCPCS: 99202 ==

== ENCOUNTER 2024-06-10 11:41 | Outpatient (REF) | payer OTHER, SELFPAY ==
--- NOTE | ~2024-06-10 | MR_ITS ---
EXAMINATION: MR LUMBAR SPINE WITHOUT CONTRAST CLINICAL INFORMATION: Spondylosis without myelopathy or radiculopathy, lumbar region. COMPARISON: No prior MRI. Correlated to the lumbar spine x-ray dated March 08, 2024 demonstrated scoliosis. TECHNIQUE: MRI of the lumbar spine was obtained using routine sequences without contrast. FINDINGS: Last rib-bearing vertebra labeled T12. Dextroconvex rotoscoliosis apex at L3. Multilevel marginal osteophyte formation and, disc desiccation and endplate irregularities more conspicuous from T12-L1 to L3-4. Grade 1 retrolisthesis, L3-4, L2-3 levels. Grade 1 anterolisthesis L5-S1. Conus medullaris ends at superior endplate of L2 with normal signal. No bone marrow STIR signal abnormality. T12-L1: Right subarticular disc protrusion. No compression upon neural elements. No neuroforamina stenosis. L1-2: No disc herniation. No neuroforamina stenosis. L2-3: Broad-based disc bulging. Grade 1 retrolisthesis. Facet joint hypertrophy. No central spinal canal stenosis. Left neuroforamina narrowing. L3-4: Grade 1 retrolisthesis. Facet joint and ligamentum flavum hypertrophy more conspicuous on the left. Facet effusions. Left neuroforamina stenosis likely encroaching the left L3 exiting nerve roots. No gross central spinal canal stenosis. L4-5: Broad-based disc bulging slightly asymmetric to the right resulting in right neuroforamina narrowing/stenosis. Facet joint and ligamentum flavum hypertrophy. Reduced AP diameter of the thecal sac likely encroaching the neural elements. L5-S1: Broad-based disc bulging bilateral neuroforamina narrowing encroaching the exiting nerve roots. Facet joint hypertrophy. No gross central spinal canal stenosis. No prevertebral compartment hematoma, mass or fluid collection. Fatty atrophy of the lower lumbar muscles from L4 to sacrum. MR/MR lumbar spine wo con IMPRESSION: Multilevel lumbar spondylosis and dextroconvex rotoscoliosis resulting in grade 1 retrolisthesis L3-4, L2-3 and grade 1 anterolisthesis L5-S1 causing multilevel neuroforamina stenosis at L3-4, L4-5 and to a lesser extent L5-S1. Electronically signed by: Joel Oh MD 06/13/2024 10:13 AM EST
== END 2024-06-10 11:42 | disposition home or self-care (01) ==
LOC: HO.MRI 11:41
PROVIDERS: Visit Provider Anesthesiology
DX: M47.816 Spondylosis without myelopathy or radiculopathy, lumbar region (principal); M54.51 Vertebrogenic low back pain
CPT/HCPCS: 72148

== ENCOUNTER → 2024-06-10 11:55 | Outpatient (BNV) | payer OTHER, SELFPAY | PROVIDERS: Visit Provider Radiology Diagnostic Radiology | DX: M47.816 Spondylosis without myelopathy or radiculopathy, lumbar region (principal) | CPT/HCPCS: 72148 ==

== ENCOUNTER 2024-08-03 10:07 | Day surgery (SDC) | payer OTHER, SELFPAY ==
--- OUTSIDE RECORDS SUMMARY | 2024-06-21 08:38 | XMS_ITS | Clinical Summary ---
Author Organization [employer] [facility] Address [address] [place] [address] [address] [place] [address] Care Team Providers Care Bank Teller Name Role Phone Unavailable Primary Care Provider Unavailabl e Immunizations Name Administration Dates Next Due Influenza, trivalent, adjuvanted 12/30/2023 Pneumococcal Polysaccharide PPSV23 12/30/2023 Tdap 12/30/2023 Zoster, Recombinant 03/14/2024,01/04/2024 Social History Tobacco Use Types Packs/Day Years Used Date Smoking Tobacco: Never Assessed Comments Unknown Sex and Gender Information Value Date Recorded Sex Assigned at Female 01/04/2024 11:09 AM EDT Legal Sex Female 1:18 PM EDT Gender Identity Official Use Only: I nformation not Collected 01/04/2024 11:21 AM EDT Sexual Orientation Don't know 01/04/2024 11 :21 AM EDT Plan of Treatment Health Maintenance Due Date Last Done Comments CT Colonography 1957 Colonoscopy 1957 Colorectal Cancer Screening 1957 Depression Screening 1957 FIT DNA/Cologuard 1957 FIT 1957 FOBT 1957 SDOH Screening 1957 Sigmoidoscopy 1957 Alcohol/Substance Use Screening 1969 Tobacco Screening 1969 Hepatitis C Screening 09/19/1975 Mammogram 1997 COVID-19 Vaccine ( - 2023-2 5 season) 2023 Pneumococcal Vaccine: 50+ Years (2 of 2 - PCV) 12/29/2024 12/30/2023 RSV Patients and Patients Aged 60 years or older (1 - 1-dose 75+ series) 2032 DTaP/Tdap/Td Vaccines (2 - T d or Tdap) 12/29/2033 12/30/2023 Influenza Vaccine Completed 12/30/2023 Zoster Vaccines Completed 03/14/2024, 01/04/2024 HIB Vaccines Aged Out No longer eligi ble based on patient's age to complete this topic HPV Vaccines Aged Out No longer eligi ble based on patient's age to complete this topic Hepatitis A Vaccines Aged Out No long er eligible based on patient's age to complete this topic Hepatitis B Vaccines Aged Out No long er eligible based on patient's age to complete this topic IPV Vaccines Aged Out No longer eligi ble based on patient's age to complete this topic Meningococcal Vaccine Aged Out No lorraine jayy eligible based on patient's age to complete this topic RSV under 20 months Aged Out No longe r eligible based on patient's age to complete this topic Rotavirus Vaccines Aged Out No longer eligible based on patient's age to complete this topic
[2024-08-01 10:13] VITALS: BMI 22.5
--- NOTE | 2024-08-02 09:57 | HO.ANESPROP2 ---
Documented by User: Christi Gan NP 08/02/24 09:59 HPI - Anesthesia Eval Consult details Narrative: 68yo F for Colonoscopy PMFSH Active Problems Active Problems: All Active Problems Chronic pain syndrome (Acute) Sacroiliac joint dysfunction of both sides (Acute) Sacroiliitis (Acute) Spondylosis of lumbar region without myelopathy or radiculopathy (Acute) Scoliosis of lumbar spine (Acute) Vertebrogenic low back pain (Acute) Bilateral trigger thumb (Acute) Numbness and tingling in both hands (Acute) Pre-op examination (Acute) Hypertension (Acute) Bilateral carpal tunnel syndrome (Acute) Depression (Acute) Scoliosis (Acute) Hypothyroid (Acute) High cholesterol (Acute) Bilateral stiffness of wrist joints (Acute) Past Medical History Medical History Depression Hypothyroid High cholesterol Chronic pain syndrome Scoliosis Hypertension Surgical History Surgical History No pertinent past surgical history Social History Social History Are you a primary career resource technician to a significant other at home: No Do you presently have visiting nurse or other home services: No Alcohol intake: current Alcohol intake frequency: does not drink Patient Tobacco Use Status: Never used Tobacco Use of substances other than those prescribed or required for medical reasons: No Have you been hit, kicked, punched, or otherwise hurt by someone within the past year? If so, by whom?: No Are you DNR?: No Advance Directives: No Advance Directives Information Provided: Yes Meds Allergies Allergy/AdvReac Type Severity Reaction Status Date / Time No Known Allergies Allergy Verified 08/03/24 11:03 Home Medications ?Medication ?Instructions ?Recorded ?Confirmed ?Last Taken ?Type acetaminophen 650 mg 650 mg PO TID 03/09/24 08/03/24 Unknown History tablet,extended release clonazepam 1 mg tablet 1 mg PO BEDTIME PRN Anxiety 03/09/24 08/03/24 08/03/24 History fluoxetine 10 mg capsule 10 mg PO DAILY 03/09/24 08/03/24 Unknown History meloxicam 15 mg tablet 15 mg PO DAILY 03/09/24 08/03/24 Unknown History naproxen 500 mg tablet,delayed 500 mg PO BID 03/09/24 08/03/24 Unknown History release omeprazole 20 mg capsule,delayed 20 mg PO DAILY 03/09/24 08/03/24 Unknown History release rosuvastatin 10 mg tablet 10 mg PO BEDTIME 03/09/24 08/03/24 Unknown History sertraline 50 mg tablet 50 mg PO DAILY 03/09/24 08/03/24 Unknown History trazodone 50 mg tablet 50 mg PO BEDTIME 03/09/24 08/03/24 Unknown History Exam Height,Weight and Vital Signs: Height 5 ft 3 in Weight 57.606 kg Documented by User: Hugh Samaniego MD 08/03/24 11:12 [facility] Past Medical History Medical History Depression Hypothyroid High cholesterol Chronic pain syndrome Scoliosis Hypertension Family History Family history of problems with anesthesia: No Surgical History Surgical History No pertinent past surgical history History of Problems with Anesthesia: No Social History Social History Are you a primary career resource technician to a significant other at home: No Do you presently have visiting nurse or other home services: No Alcohol intake: current Alcohol intake frequency: does not drink Patient Tobacco Use Status: Never used Tobacco Use of substances other than those prescribed or required for medical reasons: No Have you been hit, kicked, punched, or otherwise hurt by someone within the past year? If so, by whom?: No Are you DNR?: No Advance Directives: No Advance Directives Information Provided: Yes Meds Allergies Allergy/AdvReac Type Severity Reaction Status Date / Time No Known Allergies Allergy Verified 08/03/24 11:03 Home Medications ?Medication ?Instructions ?Recorded ?Confirmed ?Last Taken ?Type acetaminophen 650 mg 650 mg PO TID 03/09/24 08/03/24 Unknown History tablet,extended release clonazepam 1 mg tablet 1 mg PO BEDTIME PRN Anxiety 03/09/24 08/03/24 08/03/24 History fluoxetine 10 mg capsule 10 mg PO DAILY 03/09/24 08/03/24 Unknown History meloxicam 15 mg tablet 15 mg PO DAILY 03/09/24 08/03/24 Unknown History naproxen 500 mg tablet,delayed 500 mg PO BID 03/09/24 08/03/24 Unknown History release omeprazole 20 mg capsule,delayed 20 mg PO DAILY 03/09/24 08/03/24 Unknown History release rosuvastatin 10 mg tablet 10 mg PO BEDTIME 03/09/24 08/03/24 Unknown History sertraline 50 mg tablet 50 mg PO DAILY 03/09/24 08/03/24 Unknown History trazodone 50 mg tablet 50 mg PO BEDTIME 03/09/24 08/03/24 Unknown History Exam Airway Mallampati Class: II TM Dist: >3cm Neck ROM: Full Assessment and Plan Assessment Anesthesia Assessment: Anesthesia Plan Discussed and Chart Reviewed Final Anesthetic Review Family History of Problems with Anesthesia: No History of Problems with Anesthesia: No NPO: Yes ASA Class: II Final Preanesthetic Review: No Changes in Pt Med Stat, Meds/Allgs Chart Reviewed, Consent Obtained/Reviewed and Anes Risks/Benef Reviewed Patient Risk: Low Procedure Risk: Low Anesthetic Plan Anesthetic Plan: TIVA Disposition: Standard PACU
--- NOTE | 2024-08-03 10:33 | MHC.SHP ---
Pre-Procedural Eval Section A - 24 Hr Update-Section A only Date of Service: 08/03/24 Section B - Complete if H&P > 30 days Chief Complaint: Encounter for screening for malignant neoplasm of Details of Present Illness: PMX Hypertension High cholesterol Hypothyroid Scoliosis Depression Bilateral carpal tunnel syndrome * Present Medications: see Short Stay Collaborative assessment Allergies: Allergies Allergy/AdvReac Type Severity Reaction Status Date / Time No Known Allergies Allergy Verified 04/14/24 10:20 Review of Systems Review of Systems Comment: Ten point ROS negative Exam Exam Comment: Gen appear: No acute distress HEENT: no icterus Chest: No overt resp distress Abd: soft, nontender, nondistended Psych: Stable affect, answering questions appropriately Neuro: A/Ox3 noted to move all extremities spontaneously Ext: no peripheral edema Plan Diagnosis/Plan: Unchanged I have reviewed the history and physical and performed a pertinent physical examination on my patient. No changes have occurred unless specified. Time Spent With Patient Time: Total time managing care of this patient today ____ minutes.
[2024-08-03 11:04] VITALS: BP 126/78; PULSE 90; RESP 16; TEMP 36.4; O2SAT 97; BMI 22.3
[2024-08-03] MEDS: Lactated Ringers 1,000 ML 100 ML IVCONT (11:15)
[2024-08-03 12:55] VITALS: BP 104/51; PULSE 75; RESP 14; TEMP 36.2; O2SAT 96
--- NOTE | 2024-08-03 12:55 | P.OPN-COLO_ITS ---
Colonoscopy Operative Note Operative Note Date of Service: 08/03/24 Narrative: Procedure: Colonoscopy Indication: Screening Endoscopist: Natalya Lundberg MD Anesthesia Provider: Dr Hugh Samaniego Anesthesia type: MAC Instrument: Olympus [id number]-[id number] Consent: Indication, risks vs benefits, and alternatives were discussed with the patient who gave written informed consent to proceed. An accounting bookkeeper was utilized to assist with the consent. EKG, pulse, pulse oximetry and blood pressure were monitored throughout the procedure. Please see anesthesia flowsheet. Procedure: The patient was brought to the procedure room and placed in the left lateral decubitus position. IV medications were administered by the anesthesia provider in attendance. A digital rectal exam was performed which was normal. A distal attachment cap was affixed to the tip of the colonoscope which was then inserted through the anus and advanced through the colon to the cecum at 75 cm,and terminal ileum. Appendiceal orifice and ileocecal valve were identified. Mucosa was carefully examined under high definition white light as the instrument was slowly withdrawn in a retrograde panoramic fashion. Retroflexion was performed in rectum. The procedure was not difficult. There were no immediate obvious complications. The quality of the prep was BBPS: 3+2+3 = adequate Withdrawal time 6 minutes. Limitations: No limitations. Findings: Mucosa: Normal to cecum and terminal ileum. Protruding lesions: * 1 sessile polyp of size 3 mm in transverse colon. Cold snare polypectomy was performed. The polyp was completely removed and retrieved. * Medium internal hemorrhoids without stigmata of recent bleeding. Impression: 1. Normal colon and terminal ileum mucosa 2. 1 polyp removed 3. External and internal hemorrhoids Recommendations: - Follow path results. - Repeat colonoscopy in 7-10 years if polyp is an adenoma or sessile serrated.
[2024-08-03 13:10] VITALS: BP 110/62; PULSE 71; RESP 20; TEMP 36.8; O2SAT 97
== END 2024-08-03 13:33 | disposition home or self-care (01) ==
PROVIDERS: Visit Provider Internal Medicine
PROC: 0DJD8ZZ Inspection of Lower Intestinal Tract, Via Natural or Artificial Opening Endoscopic (ICD-10-PCS; CPT 45378; principal; 2024-08-03 12:30)
DX: Z12.11 Encounter for screening for malignant neoplasm of colon (principal); D12.3 Benign neoplasm of transverse colon; K64.8 Other hemorrhoids; K64.4 Residual hemorrhoidal skin tags; I10 Essential (primary) hypertension; E78.00 Pure hypercholesterolemia, unspecified; E03.9 Hypothyroidism, unspecified; M41.9 Scoliosis, unspecified; F32.A Depression, unspecified; Z79.1 Long term (current) use of non-steroidal anti-inflammatories (NSAID); Z79.899 Other long term (current) drug therapy; Z88.8 Allergy status to other drugs, medicaments and biological substances
CPT/HCPCS: 45385; 88305; J2704

== ENCOUNTER → 2024-08-03 10:07 | Outpatient (BNV) | payer OTHER, SELFPAY | PROVIDERS: Visit Provider Internal Medicine | DX: Z12.11 Encounter for screening for malignant neoplasm of colon (principal); D12.3 Benign neoplasm of transverse colon; K64.8 Other hemorrhoids | CPT/HCPCS: 45385 ==

== ENCOUNTER 2024-08-09 08:58 | Outpatient (AMB) | payer OTHER, SELFPAY ==
--- NOTE | 2024-08-09 09:00 | A.OFFVIS_ITS ---
Intake Visit Reasons: OV-RT hand trigger finger last inj 04/14/24 Intake Note: Mary is a 68 year old right hand dominant female who presents today for a follow up of her bilateral thumb trigger finger. On 04/14/24 patient had a left thumb injection & Right Trigger thumb injected on 02/09/24 administered. Patient reports that the injection were only helpful for about 2 months. She would like to discuss moving forward with the trigger finger release and would like to have the procedure done on the left side first. Pets [employer] Pet Supp[employer] Salesperson Required: Yes Pets And Pet Supplies Salesperson Name: TORRIE - [phone] Allergies No Known Allergies Allergy (Verified 08/09/24 09:11) HPI HPI OV-RT hand trigger finger last inj 04/14/24: Details: Mary is a 68 year old right hand dominant female who presents today for a follow up of her bilateral thumb trigger finger. On 04/14/24 patient had a left thumb injection & Right Trigger thumb injected on 02/09/24 administered. Patient reports that the injection were only helpful for about 2 months. She would like to discuss moving forward with the trigger finger release and would like to have the procedure done on the left side first. Reports ongoing numbness and tingling, has not had EMG and nerve conduction study done. [facility] Medical History Depression Hypothyroid High cholesterol Chronic pain syndrome Scoliosis Hypertension Surgical History No pertinent past surgical history Social History Are you a primary healthcare management consultant to a significant other at home: No Do you presently have visiting nurse or other home services: No Alcohol intake: current Alcohol intake frequency: does not drink Patient Tobacco Use Status: Never used Tobacco Review of Systems Const All systems reviewed & are unremarkable except as noted in HPI and below Physical Exam Extrem Other: Patient is alert, oriented, and in no acute distress. Neuro: Normal sensation of the tips of all digits of the bilateral hands at this time Vascular: Cap refill brisk Pain: Patient reports tenderness to palpation of the A1 davidson of left thumb Patient reports diffuse vyhl-ns-cpaclici tenderness to palpation about bilateral wrists, worst in the volar aspect ROM: Extension of bilateral wrists limited to approximately 30 degrees past neutral Bilateral wrist flexion full and intact Patient is able to make a closed fist and extend all digits of bilateral hands fully There is however visible and palpable locking and catching of left thumb No locking or catching of right thumb noted in the office today Skin: No lacerations or abrasions. General: No ecchymosis, erythema, or evidence of infection. Psych: Appears grossly normal Affect normal Attitude cooperative Assessment & Plan Assessment & Plan (1) Numbness and tingling in both hands: Code(s): R20.0 - Anesthesia of skin; R20.2 - Paresthesia of skin Category: Medical (2) Bilateral trigger thumb: Code(s): M65.311 - Trigger thumb, right thumb; M65.312 - Trigger thumb, left thumb Category: Medical Plan 1. trigger thumb, left I educated the patient about the condition. I discussed both operative and nonoperative treatment options. The patient would like to proceed with surgery. \ The risks and benefits of operative treatment were discussed with the patient and the patient wishes to proceed with surgery. These risks include, but are not limited to, risk of damage to blood vessels, nerves, tendons, infection, recurrence, incomplete relief of preoperative symptoms, persistent pain, possible need for further surgery, and the risks associated with regional blocks and/or anesthesia. Plan is to take the patient to the operating room at some point in the next few weeks for the following procedures: 1. Left trigger thumb release under local All of the preoperative paperwork including the consent was discussed today. All of the patient's questions were answered in the clinic today. The patient understands that they will be in contact with our surgical appliances salesperson to discuss scheduling their procedure. Patient denies diabetes, blood thinners, asthma, heart issues, lung issues, kidney issues, or current smoking. 2. Trigger thumb, right Patient would like to proceed with operative intervention of the left prior to any intervention of the right Patient is educated that if she is recovering well at postop visit, we can get the other side signed up at that time Patient was amenable to this plan 3. Bilateral hand numbness and tingling Patient never had EMG and nerve conduction study, new order placed today Follow-up after EMG and nerve conduction study for results review and discussion of further treatment Patient was amenable to this plan Orders: Orders NE electromyogram (EMG) Today R20.0 - Anesthesia of skin, R20.2 - Paresthesia of skin NE nerve conduction velocity Today R20.0 - Anesthesia of skin, R20.2 - Paresthesia of skin Coding Level of Care Code Est Pt Level 4 (03207) Diagnoses Numbness and tingling in both hands R20.0; R20.2 Bilateral trigger thumb M65.311; M65.312
--- OUTSIDE RECORDS SUMMARY | 2024-08-09 09:32 | XMS_ITS | Clinical Summary ---
Author Organization [employer] [facility] Address [address] [place] [address] [address] [place] [address] Care Team Providers Care Step Down Nurse Name Role Phone Unavailable Primary Care Provider [...]
== END 2024-08-09 09:31 | disposition home or self-care (01) ==
LOC: HO.HOS 08:59
DX: R20.0 Anesthesia of skin (principal); R20.2 Paresthesia of skin; M65.311 Trigger thumb, right thumb; M65.312 Trigger thumb, left thumb
CPT/HCPCS: 99214

== ENCOUNTER → 2024-08-09 08:58 | Outpatient (BNVA) | payer OTHER, SELFPAY | DX: M65.311 Trigger thumb, right thumb (principal); M65.312 Trigger thumb, left thumb; R20.0 Anesthesia of skin; R20.2 Paresthesia of skin | CPT/HCPCS: 99212 ==

== ENCOUNTER 2024-08-15 06:38 | Outpatient (REF) | payer OTHER, SELFPAY ==
--- NOTE | ~2024-08-15 | FL_ITS ---
EXAMINATION: XR FLUOROSCOPY WITH IMAGES CLINICAL INFORMATION: Pain management injection SI joints. COMPARISON: None available. TECHNIQUE: Fluoroscopy provided to: Dr. Haskins Fluoroscopy time: 0.2 minutes DAP: 0.0397 mGycm2 Images: 2 FINDINGS: 2 fluoroscopic images obtained images during bilateral SI joint injection. Refer to the full procedural report for details. FL/FL guidance in treatment room IMPRESSION: Fluoroscopic guidance. Electronically signed by: Robbi Mckoy MD 08/16/2024 01:52 PM EDT
--- OUTSIDE RECORDS SUMMARY | 2024-08-15 06:42 | XMS_ITS | Clinical Summary ---
Author Organization [employer] [facility] Address [address] [place] [address] [address] [place] [address] Care Team Providers Care Locomotive Operator Helper Name Role Phone Unavailable Primary Care Provider [...]
== END 2024-08-15 06:39 | disposition home or self-care (01) ==
LOC: CF 06:38
PROVIDERS: Visit Provider Anesthesiology
DX: M53.3 Sacrococcygeal disorders, not elsewhere classified (principal)
CPT/HCPCS: 27096; J2003; J2795; Q9967

== ENCOUNTER 2024-08-15 14:07 | Outpatient (AMB) | payer OTHER, SELFPAY ==
[2024-08-15 14:18] VITALS: BP 107/73; PULSE 78; RESP 16; O2SAT 98
--- NOTE | 2024-08-15 14:18 | A.OFFVIS_ITS ---
Vital Signs 08/15/24 14:18 08/15/24 14:41 BP 107/73 104/70 Blood Pressure Location Lt brachial Lt brachial Position Sitting Sitting Respiration 16 16 Pulse 78 69 Pulse Source Pulse Oximeter Pulse Oximeter Pulse Oximetry (%) 98 100 Oxygen Delivery Method Room Air Room Air Intake Visit Reasons: BILATERAL DIAGNOSTIC SIJ INJECTIONS Bandage Winding Machine Operator Required: Yes Bandage Winding Machine Operator Services: Bandage Winding Machine Operator Offered & Declined Bandage Winding Machine Operator Name: Prefers daughter Allergies No Known Allergies Allergy (Verified 08/15/24 14:18) Medication List - Last Reconciled 08/15/24 by Olivia Narayan LPN acetaminophen ER 650 mg PO TID bisacodyl (Dulcolax (bisacodyl)) 10 mg (2 x 5 mg) PO BEDTIME 2 days clonazepam 1 mg PO BEDTIME PRN cyclobenzaprine 5 mg PO TID PRN 7 days fluoxetine 10 mg PO DAILY irbesartan 150 mg PO DAILY meloxicam 15 mg PO DAILY naproxen 500 mg PO BID omeprazole 20 mg PO DAILY rosuvastatin 10 mg PO BEDTIME sertraline 50 mg PO DAILY trazodone 50 mg PO BEDTIME PFSH Medical History Depression Hypothyroid High cholesterol Chronic pain syndrome Scoliosis Hypertension Surgical History No pertinent past surgical history Social History Are you a primary vehicle care specialist to a significant other at home: No Do you presently have visiting nurse or other home services: No Alcohol intake: current Alcohol intake frequency: does not drink Patient Tobacco Use Status: Never used Tobacco Physical Exam Vital Signs: Last Vital Signs Pulse 69 08/15/24 14:41 Resp 16 08/15/24 14:41 BP 104/70 08/15/24 14:41 Pulse Ox 100 08/15/24 14:41 Oxygen Delivery Method Room Air 08/15/24 14:41 Assessment & Plan Assessment & Plan (1) Vertebrogenic low back pain: Code(s): M54.51 - Vertebrogenic low back pain Category: Medical (2) Scoliosis of lumbar spine: Code(s): M41.9 - Scoliosis, unspecified Category: Medical (3) Spondylosis of lumbar region without myelopathy or radiculopathy: Code(s): M47.816 - Spondylosis without myelopathy or radiculopathy, lumbar region Category: Medical (4) Sacroiliitis: Code(s): M46.1 - Sacroiliitis, not elsewhere classified Category: Medical (5) Sacroiliac joint dysfunction of both sides: Code(s): M53.3 - Sacrococcygeal disorders, not elsewhere classified Category: Medical (6) Chronic pain syndrome: Code(s): G89.4 - Chronic pain syndrome Category: Medical Plan: Bilateral diagnostic Sacroiliac joint injection Informed consent was explained thoroughly to the patient.? All questions about benefits and risks for the procedure were answered. Patient came to the operating room and was positioned prone on the operating table with the pillow under the abdomen.? Time-out was performed delineating name and date of of the patient nature of the procedure and side and site of the procedure. The lower back and buttocks of the patient were prepped with ChloraPrep prepped and draped with sterile utility towels.? C-arm was brought over the operating field and sq picture of patient's pelvis was demonstrated on the screen.? For each joint tilting C-arm contralateral to the site of the joint the most posterior portion of the joints was superimposed with anterior silhouette of the joint.? Skin was injected in the projection of the joint slightly medial to the location of the joint with 25 gauge 1/2 inch needle using local lidocaine 2% . After that 22 gauge 3 and 1/2 inch needle was driven to the right and left joint in tunnel vision fashion.? When needle entered the joint capsule injection of the contrast was performed demonstrating intra-articular and minimally periarticular spread of the contrast.? After that 4 cc. of ropivacaine 0.5% was injected into each joint.? Upon completion of the injections the needles were removed .? Sterile dressing was applied.? Upon completion of the injection patient was taken outside of the operating room to the recovery room where recovered uneventfully. Plan The patient reported pain in prolonged sitting and with activities. She reports she is not able to tolerate long rides. 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 She has significant scoliosis and most likely she also has spondylosis of the lumbar spine. On physical exam signs of sacroiliitis bilateral also prominent. 1. I will schedule patient for diagnostic bilateral sacroiliac joint injection. 2. I will send this patient for the MRI to confirm or rule out vertebra genic pain syndrome. 3. Sacroiliac joint injections could be given to the patient's in the future therapeutic if her diagnostic injection will appear to be her pain generators at least to a certain extent. 4. Intercept procedure could be offered to the patient if MRI will demonstrate Modic type 1 and 2 changes in the lumbar spine. Next appointment will be scheduled to evaluate this patient after diagnostic sacroiliac joint injection. Orders: Orders FL guidance in treatment room 08/15/24 M53.3 - Sacrococcygeal disorders, not elsewhere classified Coding Level of Care Code Procedure Only Diagnoses Vertebrogenic low back pain M54.51 Scoliosis of lumbar spine M41.9 Spondylosis of lumbar region without myelopathy or radiculopathy M47.816 Sacroiliitis M46.1 Sacroiliac joint dysfunction of both sides M53.3 Chronic pain syndrome G89.4
[2024-08-15 14:41] VITALS: BP 104/70; PULSE 69; RESP 16; O2SAT 100
--- OUTSIDE RECORDS SUMMARY | 2024-08-15 16:59 | XMS_ITS | Clinical Summary ---
Author Organization [employer] [facility] Address [address] [place] [address] [address] [place] [address] Care Team Providers Care Paver Name Role Phone Unavailable Primary Care Provider [...]
== END 2024-08-15 14:42 | disposition home or self-care (01) ==
LOC: HO.PMCPRC 14:07
PROVIDERS: Visit Provider Anesthesiology
DX: M46.1 Sacroiliitis, not elsewhere classified (principal)
CPT/HCPCS: 27096

== ENCOUNTER 2024-08-17 10:02 | Outpatient (AMB) | payer OTHER, SELFPAY ==
--- NOTE | 2024-08-17 10:15 | A.OFFVIS_ITS ---
Vital Signs 08/17/24 10:16 Height 5 ft 6 in Weight 133 lb BMI 21.5 BP 124/77 Blood Pressure Location Rt brachial Position Sitting Pulse 76 Pulse Source Pulse Oximeter Pulse Oximetry (%) 99 Oxygen Delivery Method Room Air Intake Visit Reasons: BILATERAL DIAGNOSTIC SIJ INJECTIONS Turning Machine Operator Required: Yes Turning Machine Operator Services: Turning Machine Operator Present Turning Machine Operator Name: # [id number] Information Interpreted: non-clinical & clinical Allergies No Known Allergies Allergy (Verified 08/17/24 10:16) Medication List - Last Reconciled 08/17/24 by Charline Mendoza, CAR CLEANER acetaminophen ER 650 mg PO TID bisacodyl (Dulcolax (bisacodyl)) 10 mg (2 x 5 mg) PO BEDTIME 2 days clonazepam 1 mg PO BEDTIME PRN cyclobenzaprine 5 mg PO TID PRN 7 days fluoxetine 10 mg PO DAILY irbesartan 150 mg PO DAILY meloxicam 15 mg PO DAILY naproxen 500 mg PO BID omeprazole 20 mg PO DAILY rosuvastatin 10 mg PO BEDTIME sertraline 50 mg PO DAILY trazodone 50 mg PO BEDTIME HPI Comments Details: Mary dempsey is back in my office after diagnostic bilateral sacroiliac joint injection. She reports no pain in the lower back for the past 48 hours. She reports excellent mobility great activities of daily living very good social interactions. The patient still enjoys absence of pain after the procedure. Now we can say with certainty that the pain generators of this patient is sacroiliac joints. I offered the patient therapeutic sacroiliac joint injection bilateral, the patient agreed to go for the procedure. She denies diabetes she denies osteoporosis. Brief explanations about continuation of the sacroiliac joint injections was given to the patient. MRI report was evaluated as well as MRI images. There is no significant Modic type changes. I think we can take this diagnosis off of the list. I will see this patient 1 month after therapeutic injection in the office. Prior: complains on pain in the lower back and mid back without much of the radiation to bilateral lower extremities. She reports pain aggravation with prolonged sitting, she reports pain aggravation with prolonged standing, she reports increased pain with activities. She reports that pain started years ago she does not have any inciting event which would explain her pain. She is suffering as a child from scoliosis. She take some OTC medications to control her pain. They are not very helpful. She recently relocated here from [place]. She recently completed 2 months ago physical therapy and she reported minimal help from physical therapy which disappear soon after the sessions. She reported in the past chiropractic manipulations which were not helpful for her. [facility] Medical History Depression Hypothyroid High cholesterol Chronic pain syndrome Scoliosis Hypertension Surgical History No pertinent past surgical history Social History Are you a primary child care provider to a significant other at home: No Do you presently have visiting nurse or other home services: No Alcohol intake: current Alcohol intake frequency: does not drink Patient Tobacco Use Status: Never used Tobacco Review of Systems Const All systems reviewed & are unremarkable except as noted in HPI and below ENT Reports Normal hearing present Neuro Reports Normal hearing present, Denies Abnormal speech present, Denies confusion and Denies Sensory deficit (Neuro) Psych Denies confusion Physical Exam Vital Signs: Last Vital Signs Pulse 76 08/17/24 10:16 BP 124/77 08/17/24 10:16 Pulse Ox 99 08/17/24 10:16 Oxygen Delivery Method Room Air 08/17/24 10:16 BMI result Body Mass Index 21.5 Const General: no acute distress; No confusion Nutritional Appearance: average body habitus Orientation/consciousness: patient oriented x3 and No confusion Limitations: ambulation with walker Eyes General: appearance normal, both eyes and all related structures Pupils: Equal, round and reactive pupils present EOM: EOMs intact bilaterally Neck Neck: Yes full ROM Chest Chest palpation & inspection: normal inspection of the chest Resp Effort & Inspection: normal respiratory effort, able to speak in complete sentences, normal respiratory pattern, no audible wheezes and no cough Cardio Jugular venous distension: no JVD GI Inspection: Yes normal to inspection Back/Spine/Pelvis Other: Able to stand on bilateral tiptoes and bilateral heels without difficulty. Able to flex herself forward only to about 30 degrees. Able to arch herself backwards about 10-15 degrees. Both maneuvers aggravate her pain. Denies Valsalva maneuver aggravate her pain. SLR is negative bilaterally. Lassegue test is negative bilaterally. Duane test positive bilaterally. Pelvic compression test positive bilaterally. Pelvic distraction test is positive bilaterally. Loading test is positive bilaterally. Neuro General: patient oriented x3, gait normal and No confusion Cranial nerves: Yes CN's II-XII intact bilaterally, Yes Equal, round and re active pupils present, Yes Normal hearing present and Yes Ability to bilaterally elevate shoulders present Speech: No Abnormal speech present Gait exam (Neuro): Normal gait present Motor exam (neuro): 5/5 motor strength present throughout Sensory Exam: No Sensory deficit (Neuro) Extrem General: No pedal edema Psych Speech and movement: Normal speech and movement present Affect: normal affect Attitude: cooperative Thought process: Normal thought process present Thought content: Normal thought content present Insight: Good insight present (Psych) Judgement: Good judgement present (Psych) Results Reviewed Results Reviewed: MRI of the lumbar spine was obtained using routine sequences without contrast. FINDINGS: Last rib-bearing vertebra labeled T12. Dextroconvex rotoscoliosis apex at L3. Multilevel marginal osteophyte formation and, disc desiccation and endplate irregularities more conspicuous from T12-L1 to L3-4. Grade 1 retrolisthesis, L3-4, L2-3 levels. Grade 1 anterolisthesis L5-S1. Conus medullaris ends at superior endplate of L2 with normal signal. No bone marrow STIR signal abnormality. T12-L1: Right subarticular disc protrusion. No compression upon neural elements. No neuroforamina stenosis. L1-2: No disc herniation. No neuroforamina stenosis. L2-3: Broad-based disc bulging. Grade 1 retrolisthesis. Facet joint hypertrophy. No central spinal canal stenosis. Left neuroforamina narrowing. L3-4: Grade 1 retrolisthesis. Facet joint and ligamentum flavum hypertrophy more conspicuous on the left. Facet effusions. Left neuroforamina stenosis likely encroaching the left L3 exiting nerve roots. No gross central spinal canal stenosis. L4-5: Broad-based disc bulging slightly asymmetric to the right resulting in right neuroforamina narrowing/stenosis. Facet joint and ligamentum flavum hypertrophy. Reduced AP diameter of the thecal sac likely encroaching the neural elements. L5-S1: Broad-based disc bulging bilateral neuroforamina narrowing encroaching the exiting nerve roots. Facet joint hypertrophy. No gross central spinal canal stenosis. No prevertebral compartment hematoma, mass or fluid collection. Fatty atrophy of the lower lumbar muscles from L4 to sacrum. IMPRESSION: Multilevel lumbar spondylosis and dextroconvex rotoscoliosis resulting in grade 1 retrolisthesis L3-4, L2-3 and grade 1 anterolisthesis L5-S1 causing multilevel neuroforamina stenosis at L3-4, L4-5 and to a lesser extent L5-S1. Assessment & Plan Assessment & Plan (1) Scoliosis of lumbar spine: Code(s): M41.9 - Scoliosis, unspecified Category: Medical (2) Spondylosis of lumbar region without myelopathy or radiculopathy: Code(s): M47.816 - Spondylosis without myelopathy or radiculopathy, lumbar region Category: Medical (3) Sacroiliitis: Code(s): M46.1 - Sacroiliitis, not elsewhere classified Category: Medical (4) Sacroiliac joint dysfunction of both sides: Code(s): M53.3 - Sacrococcygeal disorders, not elsewhere classified Category: Medical (5) Chronic pain syndrome: Code(s): G89.4 - Chronic pain syndrome Category: Medical Plan Patient exhibit today excellent results of diagnostic sacroiliac joint injection bilateral. See discussion as above. I will schedule her for therapeutic sacroiliac joint injection and I will see her in the office 1 month after this procedure. Briefly continuation of the injections was explained to the patient. It depends on longevity of pain relief after longevity of pain relief after sacroiliac joint injection. Patient Instructions: I here by testify that I spent 35 minutes evaluating diagnostic studies for this patient, diagnostic reports, planning her care and organizing this note. Coding Level of Care Code Est Pt Level 4 (23482) Diagnoses Scoliosis of lumbar spine M41.9 Spondylosis of lumbar region without myelopathy or radiculopathy M47.816 Sacroiliitis M46.1 Sacroiliac joint dysfunction of both sides M53.3 Chronic pain syndrome G89.4
[2024-08-17 10:16] VITALS: BP 124/77; PULSE 76; O2SAT 99; BMI 21.5
--- OUTSIDE RECORDS SUMMARY | 2024-08-17 11:27 | XMS_ITS | Clinical Summary ---
Author Organization [employer] [facility] Address [address] [place] [address] [address] [place] [address] Care Team Providers Care Hematology Specialist Name Role Phone Unavailable Primary Care Provider [...]
== END 2024-08-17 10:27 | disposition home or self-care (01) ==
LOC: HO.PMC 10:03
PROVIDERS: Visit Provider Anesthesiology
DX: M41.9 Scoliosis, unspecified (principal); M47.816 Spondylosis without myelopathy or radiculopathy, lumbar region; M46.1 Sacroiliitis, not elsewhere classified; M53.3 Sacrococcygeal disorders, not elsewhere classified; G89.4 Chronic pain syndrome
CPT/HCPCS: 99214

== ENCOUNTER → 2024-08-17 10:02 | Outpatient (BNVA) | payer OTHER, SELFPAY | PROVIDERS: Visit Provider Anesthesiology | DX: M41.9 Scoliosis, unspecified (principal); M47.816 Spondylosis without myelopathy or radiculopathy, lumbar region; M46.1 Sacroiliitis, not elsewhere classified; M53.3 Sacrococcygeal disorders, not elsewhere classified; G89.4 Chronic pain syndrome | CPT/HCPCS: 99212 ==

== ENCOUNTER 2024-09-15 09:40 | Outpatient (REF) | payer OTHER, SELFPAY ==
--- OUTSIDE RECORDS SUMMARY | 2024-09-15 09:55 | XMS_ITS | Clinical Summary ---
Author Organization [employer] [facility] Address [address] [place] [address] [address] [place] [address] Care Team Providers Care Hr Recruiter Name Role Phone Unavailable Primary Care Provider Unavailabl e Immunizations Immunization Administration Dates Next Due Influenza, trivalent, adjuvanted [...] patient's age to complete this topic Meningococcal B Vaccine Aged Out No l onger eligible based on patient's age to complete [...]
[2024-09-15 10:56] LABS: Alanine Aminotransferase 24 U/L (0-31); Albumin Level 4.5 g/dL (3.5-5.0); Alkaline Phosphatase 101 U/L (39-117); Anion Gap 12 (12-20); Aspartate Amino Transferase 22 U/L (5-31); Bilirubin Total 0.3 mg/dL (0.0-1.0); Blood Urea Nitrogen 18 mg/dL (9-16); Calcium 9.8 mg/dL (8.4-10.2); Carbon Dioxide 28 mmol/L (22-29); Chloride 109 mmol/L (96-108); Cholesterol 196 mg/dL (<200); Estimated Glomerular Filt Rate > 60; Glucose Random 84 mg/dL (60-115); HDL Cholesterol 62 mg/dL (>40); LDL Cholesterol Calculated 87 mg/dL (<100); Potassium 4.6 mmol/L (3.3-5.1); Sodium 144 mmol/L (135-145); Total Protein 7.3 g/dL (6.5-8.0); Triglycerides 235 mg/dL (<150)
== END 2024-09-15 09:41 | disposition home or self-care (01) ==
LOC: HO.LAB 09:40
PROVIDERS: Visit Provider Internal Medicine
DX: E78.00 Pure hypercholesterolemia, unspecified (principal); F32.2 Major depressive disorder, single episode, severe without psychotic features; I10 Essential (primary) hypertension; M54.50 Low back pain, unspecified
CPT/HCPCS: 36415; 80053; 80061

== ENCOUNTER 2024-09-28 07:41 | Day surgery (SDC) | payer OTHER, SELFPAY ==
--- OUTSIDE RECORDS SUMMARY | 2024-08-24 07:51 | XMS_ITS | Clinical Summary ---
Author Organization [employer] [facility] Address [address] [place] [address] [address] [place] [address] Care Team Providers Care Catechist Name Role Phone Unavailable Primary Care Provider [...] C Screening 09/19/1975 Mammogram 1997 COVID-19 Vaccine (2023-2 5 season) 2023 Pneumococcal Vaccine: 50+ Years [...]
[2024-09-28 07:59] VITALS: BMI 23.8
[2024-09-28 08:00] VITALS: BP 118/68; PULSE 80; RESP 12; TEMP 37.1; O2SAT 97
--- NOTE | 2024-09-28 09:06 | P.OP_ITS ---
Operative Note Operative Note Date of Service: 09/28/24 Narrative: Operative Note Preop diagnosis: 1. Left thumb Trigger finger Postop diagnosis: Same Procedure: 1. Left thumb A1 davidson release Surgeon: Caroline Patricia MD Manager Of Human Resources: Gildardo CHRISTIE Anesthesia: local block using 1% lidocaine with epinephrine Findings: No locking or catching after A1 davidson release EBL: Less than 5 mL Tourniquet time: None Specimens: None Complications: None Disposition: Brought to recovery room in stable condition Plan: Follow-up for 10-14 days for wound check and suture removal Indications: The patient is a 69 years old, with a left thumb trigger finger that has been unresponsive to nonoperative management. The risks and benefits of operative treatment including but not limited to risk of damage to blood vessels, nerves, tendons, infection, persistent pain, persistent symptoms, recurrence or possible need for additional surgery were discussed with the patient and the patient wishes to proceed with surgery. Procedure: Once consent was obtained a local block was performed in the preop area using a combination of 1% lidocaine with epinephrine. The patient was then brought back to the operating suite and placed on the operative table in supine position. The left upper extremity was prepped and draped in a standard surgical fashion. Once assured that we had a good block, a 1.5 cm oblique incision was made centered over the A1 davidson of the left thumb . The incision was made through the skin to the subcutaneous tissues using a #15 blade. Careful dissection was made down to the level of the A1 davidson using tenotomy scissors, with care being taken to protect the nearby neurovascular structures. A longitudinal incision was made in the A1 davidson 1st using a #15 blade, then using tenotomy scissors under direct visualization. The A1 davidson was noted to be thickened. Following our A1 davidson release, we no longer saw any locking or catching of the digit with flexion and extension. Once satisfied with our A1 davidson release the wound was copiously irrigated with normal saline and hemostasis was obtained with a brief period of local pressure. The skin edges were reapproximated with some 5.0 nylon suture material and a sterile dressing was applied. The patient appears to have tolerated the procedure well and with no complications. All digits were well vascularized at the conclusion of the case.
--- NOTE | 2024-09-28 09:06 | MHC.SHP ---
Pre-Procedural Eval Section A - 24 Hr Update-Section A only Date of Service: 09/28/24 The patient is an INPATIENT: No Changes since office visit: No Cold of Flu in the past 2 weeks, No New Medical Problems, No Changes in Medication and No Patient answered all questions The patient has been examined within 24 hours of the surgical procedure. The History & Physical has been completed within 30 days and I have reviewed it.: Yes Section B - Complete if H&P > 30 days Chief Complaint: Trigger thumb, left thumb Allergies: Allergies Allergy/AdvReac Type Severity Reaction Status Date / Time No Known Allergies Allergy Verified 09/28/24 07:54 Plan Diagnosis/Plan: Unchanged I have reviewed the history and physical and performed a pertinent physical examination on my patient. No changes have occurred unless specified. Time Spent With Patient Time: Total time managing care of this patient today ____ minutes.
[2024-09-28 09:25] VITALS: BP 115/62; PULSE 62; RESP 16; O2SAT 99
== END 2024-09-28 09:59 | disposition home or self-care (01) ==
PROVIDERS: Visit Provider Orthopaedic Surgery
PROC: (CPT 26055; principal; 2024-09-28 08:50)
DX: M65.312 Trigger thumb, left thumb (principal); R20.0 Anesthesia of skin; R20.2 Paresthesia of skin; G89.4 Chronic pain syndrome; M41.9 Scoliosis, unspecified; I10 Essential (primary) hypertension; E78.00 Pure hypercholesterolemia, unspecified; F32.A Depression, unspecified
CPT/HCPCS: 26055; J0171; J2003

== ENCOUNTER → 2024-09-28 07:41 | Outpatient (BNV) | payer OTHER, SELFPAY | PROVIDERS: Visit Provider Orthopaedic Surgery | DX: M65.312 Trigger thumb, left thumb (principal) | CPT/HCPCS: 26055 ==

== ENCOUNTER 2024-10-13 09:29 | Outpatient (AMB) | payer OTHER, SELFPAY ==
--- NOTE | 2024-10-13 09:33 | MHC.OFFVIS ---
Vital Signs 10/13/24 09:43 Height 5 ft 3 in Weight 134 lb BMI 23.7 Intake Visit Reasons: PO LT trigger thumb 09/28/24 AR Intake Note: Mary is a 68 year old right hand dominant female who presents today for a post operative visit status post left thumb A1 davidson release DOS: 09/28/[address] Caroline Patricia. Patient reports she is doing well, states some soreness. States no locking. Allergies No Known Allergies Allergy (Verified 10/13/24 09:49) HPI HPI PO LT trigger thumb 09/28/24 AR: Details: Mary is a 68 year old right hand dominant female who presents today for a post operative visit status post left thumb A1 davidson release DOS: 09/28/[address] Caroline Patricia. Patient reports she is doing well, states some soreness with range of motion. Denies any tenderness to the incision site. States no locking. No drainage from incision site. [facility] Medical History (Updated 10/13/24 @ 13:19 by SHAHNAZ Mariano) Depression Hypothyroid High cholesterol Chronic pain syndrome Scoliosis Hypertension Surgical History No pertinent past surgical history Social History Are you a primary intensive care unit registered nurse to a significant other at home: No Do you presently have visiting nurse or other home services: No Alcohol intake: current Alcohol intake frequency: does not drink Comment: counts correct Patient Tobacco Use Status: Never used Tobacco Review of Systems Const All systems reviewed & are unremarkable except as noted in HPI and below Physical Exam Vital Signs: BMI result Body Mass Index 23.7 Extrem Other: Patient is alert, oriented, and in no acute distress. Neuro: Normal sensation of the tips of all digits of the left hand at this time Vascular: Cap refill brisk Pain: No tenderness to palpation about the incision site over the A1 davidson of the left thumb Minimal discomfort with range of motion of the left thumb ROM: Patient is able to make a closed fist and extend all digits of the left hand fully and without difficulty Skin: Well approximated and well healing incision noted over the A1 davidson of the left thumb No significant erythema, drainage, evidence of dehiscence No lacerations or abrasions. General: No ecchymosis, erythema, or evidence of infection. Psych: Appears grossly normal Affect normal Attitude cooperative Assessment & Plan Assessment & Plan (1) Trigger thumb, left thumb: Code(s): M65.312 - Trigger thumb, left thumb Category: Medical Plan 1. Status post left trigger thumb release DOS 09/28/2024 Patient appears to be recovering very well postoperatively Patient is educated about the typical recovery course At this time, patient is informed she will require no further acute follow-up with us, as she is recovering very well Patient is educated on strict return precautions Patient is amenable to this plan Follow-up as needed Coding Level of Care Code Global (41073) Diagnoses Trigger thumb, left thumb M65.312
[2024-10-13 09:43] VITALS: BMI 23.7
--- OUTSIDE RECORDS SUMMARY | 2024-10-13 09:46 | XMS_ITS | Clinical Summary ---
Author Organization [employer] [facility] Address [address] [place] [address] 7 [place] [address] Care Team Providers Care Strategy Planning Consultant Name Role Phone Unavailable Primary Care Provider [...]
== END 2024-10-13 09:57 | disposition home or self-care (01) ==
LOC: HO.HOS 09:29
DX: M65.312 Trigger thumb, left thumb (principal)
CPT/HCPCS: 99024

== ENCOUNTER → 2024-10-13 09:29 | Outpatient (BNVA) | payer OTHER, SELFPAY | DX: M65.312 Trigger thumb, left thumb (principal) | CPT/HCPCS: 99212 ==

== ENCOUNTER 2024-12-12 07:38 | Outpatient (REF) | payer OTHER, SELFPAY ==
--- NOTE | ~2024-12-12 | FL_ITS ---
EXAMINATION: FL GUIDANCE ONLY HISTORY: M53.3 - Sacrococcygeal disorders, not elsewhere classified COMPARISON: None available. TECHNIQUE: Fluoroscopy time: 26.3 seconds. Cumulative Dose: 4.3912 mGy. DAP: 0.9760 mGym2 Images: 4. FINDINGS: Fluoroscopic spot films of the pelvis demonstrate needles and contrast material in the regions of the bilateral sacroiliac joints. FL/FL guidance in treatment room IMPRESSION: Fluoroscopy during procedure. Please see procedure report for additional information. Electronically signed by: Cisco Topete MD 12/12/2024 03:04 PM EDT
--- OUTSIDE RECORDS SUMMARY | 2024-12-12 07:40 | XMS_ITS | Clinical Summary ---
Author Organization [employer] [facility] Address [address] [place] [address] [address] [place] [address] Care Team Providers Care Senior Project Manager Name Role Phone Unavailable Primary Care Provider [...] 1997 COVID-19 Vaccine (2023-2 5 season) 2023 Influenza Vaccine (#1) 2024 12/30/2023 Pneumococcal Vaccine: 50+ Years (2 of 2 - PCV) 12/29/2024 12/30/2023 RSV Patients and Patients Aged 60 years or older (1 - 1-dose 75+ series) 2032 DTaP/Tdap/Td Vaccines (2 - T d or Tdap) 12/29/2033 12/30/2023 Zoster Vaccines Completed 03/14/2024, 01/04/2024 HIB [...]
== END 2024-12-12 07:39 | disposition home or self-care (01) ==
LOC: CF 07:38
PROVIDERS: Visit Provider Anesthesiology
DX: M53.3 Sacrococcygeal disorders, not elsewhere classified (principal); M46.1 Sacroiliitis, not elsewhere classified
CPT/HCPCS: 27096; J2003; J2795; J3301; Q9967

== ENCOUNTER 2024-12-12 13:15 | Outpatient (AMB) | payer OTHER, SELFPAY ==
--- NOTE | 2024-12-12 13:28 | A.OFFVIS_ITS ---
Vital Signs 12/12/24 13:29 Weight 135 lb BP 131/89 Blood Pressure Location Lt brachial Position Sitting Respiration 16 Pulse 71 Pulse Source Pulse Oximeter Pulse Oximetry (%) 100 Oxygen Delivery Method Room Air Intake Visit Reasons: BILATERAL THERAPEUTIC SIJ INJECTIONS Steel Roller Required: Yes Steel Roller Name: family Allergies No Known Allergies Allergy (Verified 10/13/24 09:49) PFSH Medical History (Updated 10/13/24 @ 13:19 by SHAHNAZ Mariano) Depression Hypothyroid High cholesterol Chronic pain syndrome Scoliosis Hypertension Surgical History No pertinent past surgical history Social History Are you a primary hospice care transitions coordinator to a significant other at home: No Do you presently have visiting nurse or other home services: No Alcohol intake: current Alcohol intake frequency: does not drink Comment: counts correct Patient Tobacco Use Status: Never used Tobacco Physical Exam Vital Signs: Last Vital Signs Pulse 71 12/12/24 13:29 Resp 16 12/12/24 13:29 BP 131/89 12/12/24 13:29 Pulse Ox 100 12/12/24 13:29 Oxygen Delivery Method Room Air 12/12/24 13:29 Assessment & Plan Assessment & Plan (1) Sacroiliitis: Code(s): M46.1 - Sacroiliitis, not elsewhere classified Category: Medical (2) Sacroiliac joint dysfunction of both sides: Code(s): M53.3 - Sacrococcygeal disorders, not elsewhere classified Category: Medical Plan Bilateral therapeutic sacroiliac joint injection Informed consent was explained thoroughly to the patient.? All questions about benefits and risks for the procedure were answered. Patient came to the operating room she was positioned prone on the operating table with the pillow under her abdomen.? Time-out was performed delineating correct site and side of the procedure name and date of of the patient. Her lower back and buttocks was prepped with ChloraPrep prepped and draped with sterile towels.C-arm was brought over the operating field and sq picture of patient's pelvis was demonstrated on the screen.? For the right joint tilting C-arm contralateral to the site of the joint of the patient the most posterior portion of the joints were superimposed of the anterior portion of the joint . Skin was injected in the projection of the joint slightly medial to the location of the joint with 25 gauge 1/2 inch needle using local lidocaine 2% mixed with ropivacaine 0.5% 1 to 1 . After that 22 gauge 3 and 1/2 inch needle was driven to the right joint in tunnel vision fashion.? When needle entered the joint capsule injection of the contrast was performed demonstrating intra-articular spread of the contrast.? After that ropivacaine o.5 % 5 mls mixed with Kenalog 40 mg was injected into the joint.? Total dose of Kenalog was 80 mg. Upon completion of the injections the needle was removed and the procedure was repeated on the left side in mirroring fashion.? After that needle was removed and Sterile dressing was applied. During the procedure patient was very uncomfortable reported significant pain on injection of the medications. Orders: Orders FL guidance in treatment room Today M53.3 - Sacrococcygeal disorders, not elsewhere classified Coding Level of Care Code Procedure Only Diagnoses Sacroiliitis M46.1 Sacroiliac joint dysfunction of both sides M53.3
[2024-12-12 13:29] VITALS: BP 131/89; PULSE 71; RESP 16; O2SAT 100
== END 2024-12-12 14:33 | disposition home or self-care (01) ==
LOC: HO.PMCPRC 13:15
PROVIDERS: Visit Provider Anesthesiology
DX: M46.1 Sacroiliitis, not elsewhere classified (principal); M53.3 Sacrococcygeal disorders, not elsewhere classified
CPT/HCPCS: 27096

== ENCOUNTER 2024-12-21 10:33 | Outpatient (REF) | payer OTHER, SELFPAY ==
[2024-12-21 11:04] LABS: MANUAL DIFF FLAG NO
[2024-12-21 11:40] LABS: Hematocrit 37.8 % (37.0-47.0); Hemoglobin 12.1 g/dl (12.0-16.0); Imm Gran Abs Auto 0.09 X10*3/uL (0.00-0.03); Imm Gran Pct Auto 0.8 % (0.0-0.4); Lymphocytes Absolute Auto 2.0 X10*3/uL (1.2-4.9); Mean Corpuscular HGB Conc 32.0 g/dl (31.0-35.0); Mean Corpuscular Hemoglobin 27.5 pg (27.0-33.0); Mean Corpuscular Volume 85.9 fL (80.0-98.0); NRBC Abs Auto 0.000 X10*3/uL (0.0-0.012); NRBC Pct Auto 0.0 /100WBC (0.0-0.2); Platelet Count 362 X10*3/uL (160-400); Red Blood Count 4.40 X10*6/uL (4.20-5.50); White Blood Count 10.9 X10*3/uL (4.8-10.8)
[2024-12-21 11:53] LABS: Alanine Aminotransferase 15 U/L (0-31); Albumin Level 4.6 g/dL (3.5-5.0); Alkaline Phosphatase 103 U/L (39-117); Anion Gap 10 (12-20); Aspartate Amino Transferase 15 U/L (5-31); Blood Urea Nitrogen 22 mg/dL (9-16); Calcium 9.7 mg/dL (8.4-10.2); Carbon Dioxide 30 mmol/L (22-29); Chloride 104 mmol/L (96-108); Cholesterol 227 mg/dL (<200); Estimated Glomerular Filt Rate > 60; HDL Cholesterol 83 mg/dL (>40); Potassium 4.8 mmol/L (3.3-5.1); Sodium 139 mmol/L (135-145); Total Protein 7.6 g/dL (6.5-8.0); Triglycerides 146 mg/dL (<150)
--- OUTSIDE RECORDS SUMMARY | 2024-12-21 11:53 | XMS_ITS | Clinical Summary ---
Author Organization [email or web address] [facility] Address [address] [place] [address] [address] [place] [address] Care Team Providers Care Prosthetic Technician Name Role Phone Unavailable Primary Care Provider [...]
[2024-12-21 12:09] LABS: Thyroid Stimulating Hormone 2.04 uIU/mL (0.32-4.0)
== END 2024-12-21 10:34 | disposition home or self-care (01) ==
LOC: HO.LAB 10:33
PROVIDERS: PCP Internal Medicine; Visit Provider Internal Medicine
DX: G56.02 Carpal tunnel syndrome, left upper limb (principal); E87.20 Acidosis, unspecified; I10 Essential (primary) hypertension; M26.622 Arthralgia of left temporomandibular joint
CPT/HCPCS: 36415; 80053; 80061; 84443; 85025

== ENCOUNTER 2025-01-18 11:50 | Outpatient (AMB) | payer OTHER, SELFPAY ==
[2025-01-18 12:03] VITALS: BP 146/63; PULSE 69; RESP 18; O2SAT 99; BMI 23.6
--- NOTE | 2025-01-18 12:03 | A.OFFVIS_ITS ---
Vital Signs 01/18/25 12:03 Height 5 ft 3 in Weight 133 lb BMI 23.6 BP 146/63 H Blood Pressure Location Lt brachial Position Sitting Respiration 18 Pulse 69 Pulse Source Pulse Oximeter Pulse Oximetry (%) 99 Oxygen Delivery Method Room Air Intake Visit Reasons: S/P BILATERAL THERAPEUTIC SIJ INJECTIONS 12/12/24 Mud Analysis Well Logging Operator Required: Yes Mud Analysis Well Logging Operator Name: nehemias Allergies No Known Allergies Allergy (Verified 01/18/25 12:02) HPI Comments Details: Mary dempsey is back in my office after therapeutic sacroiliac joint injection. She reports that she is very comfortable today. Her pain is minimal and her activities of daily living is quite expanded. She reports good night sleep and good social interactions. We discussed possibility of further treatment. I explained to the patient that therapeutic sacroiliac joint injection could be performed once in 3-4 months. However I told her that I would prefer that her pain relief would last much longer. If it will be less than 3 months from the beginning of the injection which was performed on 12/12/2024 we should think about different modalities to help her sacroiliac joint pain. I offered her to consider Nevro sacroiliac joint fusion system. Briefly I explained the patient the procedure including its risks and benefits. She had diagnostic bilateral sacroiliac joint injection. She reports no pain in the lower back for the past 48 hours. She reports excellent mobility great activities of daily living very good social interactions. MRI report was evaluated as well as MRI images. There is no significant Modic type changes. I think we can take this diagnosis off of the list. I will see this patient 1 month after therapeutic injection in the office. Prior: complains on pain in the lower back and mid back without much of the radiation to bilateral lower extremities. She reports pain aggravation with prolonged sitting, she reports pain aggravation with prolonged standing, she reports increased pain with activities. She reports that pain started years ago she does not have any inciting event which would explain her pain. She is suffering as a child from scoliosis. She take some OTC medications to control her pain. They are not very helpful. She recently relocated here from [place]. She recently completed 2 months ago physical therapy and she reported minimal help from physical therapy which disappear soon after the sessions. She reported in the past chiropractic manipulations which were not helpful for her. [facility] Medical History (Updated 10/13/24 @ 13:19 by SHAHNAZ Mariano) Depression Hypothyroid High cholesterol Chronic pain syndrome Scoliosis Hypertension Surgical History No pertinent past surgical history Social History Are you a primary rn progressive care to a significant other at home: No Do you presently have visiting nurse or other home services: No Alcohol intake: current Alcohol intake frequency: does not drink Comment: counts correct Patient Tobacco Use Status: Never used Tobacco Review of Systems Const All systems reviewed & are unremarkable except as noted in HPI and below ENT Reports Normal hearing present Neuro Reports Normal hearing present, Denies Abnormal speech present, Denies confusion and Denies Sensory deficit (Neuro) Psych Denies confusion Physical Exam Vital Signs: Last Vital Signs Pulse 69 01/18/25 12:03 Resp 18 01/18/25 12:03 BP 146/63 H 01/18/25 12:03 Pulse Ox 99 01/18/25 12:03 Oxygen Delivery Method Room Air 01/18/25 12:03 BMI result Body Mass Index 23.6 Const General: no acute distress; No confusion Nutritional Appearance: average body habitus Orientation/consciousness: patient oriented x3 and No confusion Limitations: ambulation with walker Eyes General: appearance normal, both eyes and all related structures Pupils: Equal, round and reactive pupils present EOM: EOMs intact bilaterally Neck Neck: Yes full ROM Chest Chest palpation & inspection: normal inspection of the chest Resp Effort & Inspection: normal respiratory effort, able to speak in complete sentences, normal respiratory pattern, no audible wheezes and no cough Cardio Jugular venous distension: no JVD GI Inspection: Yes normal to inspection Back/Spine/Pelvis Other: Able to stand on bilateral tiptoes and bilateral heels without difficulty. Able to flex herself forward only to about 30 degrees. Able to arch herself backwards about 10-15 degrees. Both maneuvers aggravate her pain. Denies Valsalva maneuver aggravate her pain. SLR is negative bilaterally. Lassegue test is negative bilaterally. Duane test positive bilaterally. Pelvic compression test positive bilaterally. Pelvic distraction test is positive bilaterally. [place]'s test is positive bilaterally, Gaenslen test is positive bilaterally. Loading test is positive bilaterally. Neuro General: patient oriented x3, gait normal and No confusion Cranial nerves: Yes CN's II-XII intact bilaterally, Yes Equal, round and reactive pupils present, Yes Normal hearing present and Yes Ability to bilaterally elevate shoulders present Speech: No Abnormal speech present Gait exam (Neuro): Normal gait present Motor exam (neuro): 5/5 motor strength present throughout Sensory Exam: No Sensory deficit (Neuro) Extrem General: No pedal edema Psych Speech and movement: Normal speech and movement present Affect: normal affect Attitude: cooperative Thought process: Normal thought process present Thought content: Normal thought content present Insight: Good insight present (Psych) Judgement: Good judgement present (Psych) Results Reviewed Results Reviewed: MRI of the lumbar spine was obtained using routine sequences without contrast. FINDINGS: Last rib-bearing vertebra labeled T12. Dextroconvex rotoscoliosis apex at L3. Multilevel marginal osteophyte formation and, disc desiccation and endplate irregularities more conspicuous from T12-L1 to L3-4. Grade 1 retrolisthesis, L3-4, L2-3 levels. Grade 1 anterolisthesis L5-S1. Conus medullaris ends at superior endplate of L2 with normal signal. No bone marrow STIR signal abnormality. T12-L1: Right subarticular disc protrusion. No compression upon neural elements. No neuroforamina stenosis. L1-2: No disc herniation. No neuroforamina stenosis. L2-3: Broad-based disc bulging. Grade 1 retrolisthesis. Facet joint hypertrophy. No central spinal canal stenosis. Left neuroforamina narrowing. L3-4: Grade 1 retrolisthesis. Facet joint and ligamentum flavum hypertrophy more conspicuous on the left. Facet effusions. Left neuroforamina stenosis likely encroaching the left L3 exiting nerve roots. No gross central spinal canal stenosis. L4-5: Broad-based disc bulging slightly asymmetric to the right resulting in right neuroforamina narrowing/stenosis. Facet joint and ligamentum flavum hypertrophy. Reduced AP diameter of the thecal sac likely encroaching the neural elements. L5-S1: Broad-based disc bulging bilateral neuroforamina narrowing encroaching the exiting nerve roots. Facet joint hypertrophy. No gross central spinal canal stenosis. No prevertebral compartment hematoma, mass or fluid collection. Fatty atrophy of the lower lumbar muscles from L4 to sacrum. IMPRESSION: Multilevel lumbar spondylosis and dextroconvex rotoscoliosis resulting in grade 1 retrolisthesis L3-4, L2-3 and grade 1 anterolisthesis L5-S1 causing multilevel neuroforamina stenosis at L3-4, L4-5 and to a lesser extent L5-S1. Assessment & Plan Assessment & Plan (1) Scoliosis of lumbar spine: Code(s): M41.9 - Scoliosis, unspecified Category: Medical (2) Spondylosis of lumbar region without myelopathy or radiculopathy: Code(s): M47.816 - Spondylosis without myelopathy or radiculopathy, lumbar region Category: Medical (3) Sacroiliitis: Code(s): M46.1 - Sacroiliitis, not elsewhere classified Category: Medical (4) Sacroiliac joint dysfunction of both sides: Code(s): M53.3 - Sacrococcygeal disorders, not elsewhere classified Category: Medical (5) Chronic pain syndrome: Code(s): G89.4 - Chronic pain syndrome Category: Medical Plan Patient exhibit today excellent results of therapeutic sacroiliac joint injection. It has been 1 month of almost absence of pain. Before that she received diagnostic sacroiliac joint injection bilateral. She had 48 hours of complete pain relief after the procedure. We discussed possibility of treatment her pain with continuation of the sacroiliac joint injections versus applying Nevro spinal cord stimulator fusion system for her pain. Patient will call us and schedule appointment when her pain will come back and we will discuss the situation depending on how much pain relief was lasting since 12/12/24 when she received her therapeutic injection. Patient Instructions: I here by testify that I spent 32 minutes in conversation with this patient as well as planning her care evaluating her prior records and organizing this note. Coding Level of Care Code Est Pt Level 4 (17013) Diagnoses Scoliosis of lumbar spine M41.9 Spondylosis of lumbar region without myelopathy or radiculopathy M47.816 Sacroiliitis M46.1 Sacroiliac joint dysfunction of both sides M53.3 Chronic pain syndrome G89.4
--- OUTSIDE RECORDS SUMMARY | 2025-01-18 16:44 | XMS_ITS | Clinical Summary ---
Author Organization [employer] [facility] Address [address] [place] [address] [address] [place] [address] Care Team Providers Care Head Of Business Development Name Role Phone Unavailable Primary Care Provider [...] FIT DNA/Cologuard 1957 FIT 1957 FOBT 1957 Sigmoidoscopy 1957 Alcohol/Substance Use Screening 1969 Tobacco Screening 1969 Mammogram 1997 COVID-19 Vaccine ( - 2023-2 5 season) 2024 Influenza Vaccine (#1) 2024 12/30/2023 Pneumococcal Vaccine: [...]
== END 2025-01-18 12:16 | disposition home or self-care (01) ==
LOC: HO.PMC 11:51
PROVIDERS: PCP Internal Medicine; Visit Provider Anesthesiology
DX: M41.9 Scoliosis, unspecified (principal); M47.816 Spondylosis without myelopathy or radiculopathy, lumbar region; M46.1 Sacroiliitis, not elsewhere classified; M53.3 Sacrococcygeal disorders, not elsewhere classified; G89.4 Chronic pain syndrome
CPT/HCPCS: 99214

== ENCOUNTER → 2025-01-18 11:50 | Outpatient (BNVA) | payer OTHER, SELFPAY | PROVIDERS: PCP Internal Medicine; Visit Provider Anesthesiology | DX: G89.4 Chronic pain syndrome (principal); M47.816 Spondylosis without myelopathy or radiculopathy, lumbar region; M46.1 Sacroiliitis, not elsewhere classified; M53.3 Sacrococcygeal disorders, not elsewhere classified | CPT/HCPCS: 99212 ==